=== PATIENT | female | born 1965 | race Caucasian/White ===

== ENCOUNTER → 2016-09-19 | Outpatient (CLI) | payer BC ==
--- NOTE | 2016-09-20 08:41 | USB ---
Reason for exam: follow-up at short interval from prior study. History: Benign US breast aspiration single LT of the left breast, April 09, 2016. Physical Findings: Nurse did not find any significant physical abnormalities on exam. US Breast LT Left breast ultrasound includes all four quadrants, the retroareolar region and axilla. Finding demonstrates a 4 x 3 x 3mm oval, cystic lesion at 12 o'clock. These results were verbally communicated with the patient and result sheet given to the patient on 09/19/16. ASSESSMENT: Benign, BI-RAD 2 RECOMMENDATION: Follow-up diagnostic mammogram of both breasts in 6 months.
== END | disposition home or self-care (01) ==
LOC: RADUSWWP 15:48
PROVIDERS: ATTEND Surgery
DX: N60.02 Solitary cyst of left breast (principal)

== ENCOUNTER → 2017-06-12 | Outpatient (CLI) | payer BC ==
[2017-06-11 17:41] VITALS: BMI 29.7
[2017-06-12 13:40] VITALS: BP 134/92; PULSE 114; RESP 18; TEMP 97.7
--- NOTE | 2017-06-12 14:32 | P.CONS ---
History of Present Illness - Reason for Consult Consult date: 06/12/17 - History of Present Illness This is a 51 years old female, she had deep laceration to the dorsum of the second finger of her right hand, the wound was initially glued, and 4 days later she had stitches, and she was treated with immobilizer for 3 weeks, when the cast was removed she had skin discoloration and she had severe pain in her right hand, and burning sensation which is increased mostly at night, she had physical therapy without any significant improvement, and she is currently on Neurontin 300 mg daily at bedtime, and she is on amitriptyline 25 mg daily at bedtime, she is not able to take any medication during the daytime because she is working and she has side effects from the medication when she take medication during the daytime, she denies any fever or night sweats , she continued to use her right upper extremity, she continues to work full-time Past Medical History Past Medical History: GERD/Reflux, Thyroid Disorder Additional Past Medical History / Comment(s): GRAVES, HAD IODINE [place]., occasional back pain, hiatal hernia., having pain right hand. History of Any Multi-Drug Resistant Organisms: None Reported Past Surgical History: Section, Cholecystectomy, Tubal Ligation, Uterine Ablation Additional Past Surgical History / Comment(s): C-S X3. Past Anesthesia/Blood Transfusion Reactions: Family History of Problems w/ Anesthesia Additional Past Anesthesia/Blood Transfusion Reaction / Comm: SISTER, PONV. Smoking Status: Former smoker - Past Family History Father Family Medical History: CVA/TIA Medications and Allergies Home Medications Medication Instructions Recorded Confirmed Type Levothyroxine Sodium [Synthroid] 88 mcg PO DAILY 10/27/14 06/11/17 History Multivitamins, Thera [Theragran] 1 each PO DAILY 10/27/14 06/11/17 History Ranitidine HCl [Zantac] 1 tab PO BID PRN 10/27/14 06/11/17 History Amitriptyline HCl [Elavil] 25 mg PO HS 06/11/17 06/12/17 History Ascorbic Acid [Vitamin C] 500 mg PO DAILY 06/11/17 06/12/17 History DULoxetine HCL [Cymbalta] 20 mg PO DAILY 06/11/17 06/12/17 History Gabapentin [Neurontin] 300 mg PO DAILY PRN 06/11/17 06/12/17 History Omeprazole [PriLOSEC] 20 mg PO DAILY 06/11/17 06/11/17 History Vitamin B Complex 1 each PO DAILY 06/11/17 06/11/17 History Allergies Allergy/AdvReac Type Severity Reaction Status Date / Time Cephalosporins Allergy Rash/Hives Verified 06/12/17 13:24 shellfish derived [Shellfish] Allergy Swelling Verified 06/12/17 13:24 THROAT, SORENESS Sulfa (Sulfonamide Allergy Rash/Hives Verified 06/12/17 13:24 Antibiotics) sulfamethoxazole Allergy Rash/Hives Verified 06/12/17 13:24 [From ] trimethoprim [From ] Allergy Rash/Hives Verified 06/12/17 13:24 Physical Exam Vitals: Vital Signs Temp Pulse Resp BP Pulse Ox 06/12/17 13:26 97.7 F 114 H 18 134/92 98 Intake and Output 06/11/17 06/12/17 06/12/17 22:59 06:59 14:59 Other: Weight 74.843 kg Social history : not smoker , NO ETOH , NO Illegal drugs Review of Systems : 1- Constitutional : no chills , no fever , no night sweats , 2- Ears : no ear discharge , no change in hearing 3-Nose, Mouth ,Throat ; no bleeding gums, no sore throat , no epistaxis , 4-Cardiovascular : Denies chest pain, , no orthopnea , no palpitation 5-Respiratory : Denies cough , no dyspnea , no hemoptysis 6-Gastrointestinal :, no change in bowel habits , no coffee- ground emesis . 7-Genitourinary : No hematuria , no discharge , no incontinence, 8-Musculoskeletal : No gait dysfunction , report low back pain , 9- Neurological : no ataxia , no tremor , no sezure , 10-Psychatric , no suicidal ideation no hallucination 11- Endocrine : no cold intolerence , no polyuria , no polydypsia , 12-Hematologic : no easy bleeding , no easy brusing , 13-Allergic / immunology : no angioedema , no wheezing ,no allergic rhinitis 14-Integumentary : no brttle nails , no change hair / nails , no foot/leg ulcers . Physical Examinations : 1-Constitutional : Cooperative , not in acute distress . 2-HEENT : nech ; supple , no Lymphadenopathy , no Thyromegaly , :eyes , no icterus, no photophobia . ENT : , normal oropharynx , no Thrush 3- Respiratory : Chest clear to auscultations Bilaterally , no wheezing . 4- Cardiovascular : regular rate and rhythem , S1 , S2 , no S3 , no S4. 5- Gastrointestinal: abdomen soft no tenderness , no organomegally . 6- Genitourinary : Defferred . 7-Integumentary : No cellulitis , no ulcers , normal skin turgor , no cyanotic . 8- neurologic : Cranial nerve II to XII intact , no focal neurological deffecit 9-psychatric : alert , oriented X 3 , appropriate affect , intact judgment and insight . 10-Lymphatic : no Lymphadenopathy. 11- musculoskeltal: normal gait Cervical Spine motor stregnth in the deltoid and biceps, normal right side , normal Left side motor stregnth biceps and the wrist extensors normal right side ,normal left side . motor stregnth in the triceps muscle . normal Right side , normal Left side deep tendon reflexes normal at the biceps , normal at Brachioradialis , normal at triceps. There is scar and in the dorsum of the right hand , the scar healed appropriately, no sign of infection, no discharge no erythema Dysesthesia at the dorsum of the right index finger Lumber spine moter stegnth lower extremities ,thigh and legs 5/5 Right side , 5/5 Left side es Results Comments: EMG and nerve conduction study= there is electrodiagnostic evidence of median mononeuropathy with the motors severity focal swelling at the right wrist with acute motor denervation Assessment and Plan Plan: Assessment and plan= complex regional pain syndrome type I on the right upper extremity, Patient could benefit from stellate ganglion block, procedure risk and benefits and alternatives discussed with the patient she agreed with proceeding, patient could benefit from changing the dose of Neurontin to 100 mg every morning and 200 mg daily at bedtime because she reported that she is having side effects from the Neurontin 100 mg daily at bedtime Time with Patient: Greater than 30
== END | disposition home or self-care (01) ==
LOC: PNWHC3 13:17
PROVIDERS: ATTEND Specialist
DX: G90.511 Complex regional pain syndrome I of right upper limb (principal); S61.210D Laceration without foreign body of right index finger without damage to nail, subsequent encounter; K21.9 Gastro-esophageal reflux disease without esophagitis; E07.9 Disorder of thyroid, unspecified; K44.9 Diaphragmatic hernia without obstruction or gangrene; Z90.49 Acquired absence of other specified parts of digestive tract; Z98.890 Other specified postprocedural states; Z79.899 Other long term (current) drug therapy; Z88.2 Allergy status to sulfonamides; Z88.1 Allergy status to other antibiotic agents; Z91.013 Allergy to seafood
CPT/HCPCS: 99211

== ENCOUNTER 2017-06-24 08:54 | Day surgery (SDC) | payer BC ==
[2017-06-20 10:28] VITALS: BMI 29.7
[2017-06-24 09:19] VITALS: TEMP 98.3
[2017-06-24] MEDS ORDERED: LIDOCAINE 1% 20 ML VIAL (10MG/ML) FOR IV START INTRADERMA ONE (09:24)
[2017-06-24] MEDS ORDERED: LACTATED RINGERS 1,000 ML IV ONE (09:24)
--- NOTE | 2017-06-24 10:11 | P.PCN ---
Date of Procedure: 06/24/17 Surgeon: Hiram Anglin Pathology: none sent Condition: stable Disposition: PACU Description of Procedure: Description of Procedure: PROCEDURES: Right Stellate ganglion block with ultrasound guidance. PREOPERATIVE DIAGNOSIS: 1- RUE CRPS (type I) POSTOPERATIVE DIAGNOSIS: Same ANESTHESIA: 1% lidocaine plain; conscious sedation with Versed/fentanyl EBL: None. COMPLICATIONS: None. INDICATION: The patient presents long history of signs and symptoms suggestive of CRPS of the right arm, presents today for right stellate ganglion block, #1 in this series. No use of blood thinners. PROCEDURE DESCRIPTION: The patient was seen and identified in the preoperative area. Risks, benefits, complications, and alternatives were discussed with the patient, with risks including but not limited to hoarseness, local anesthetic toxicity, bleeding, infection, nerve damage, allergic reactions to medications, and incomplete pain relief. The patient agreed to proceed with the procedure and signed the informed consent after all questions were answered. IV was started and vital signs were stable. Patient was brought to the procedure room and placed in the supine position with a shoulder roll to improve extension of the neck. Cervical area anteriorly was prepped and draped in the usual sterile fashion with focus on the right side of the neck. Using a linear ultrasound probe and sterile cover, the thyroid gland and carotid artery were identified, as was the vertebral artery. The ultrasound was moved cephalad until the vertebral artery was seen traveling medially. Depth was changed to identify the Chass[place]ac's tubercle medial and deep to the carotid artery, signifying the C6 level. After in-plane localization with 3 ml of 1% lidocaine plain, a 22-gauge 2-inch Stimuplex needle was directed between the thyroid and carotid artery and directed onto the Ch[place]ac's tubercle and slightly withdrawn. After negative aspiration for CSF or blood and in the absence of paresthesias, solution was injected incrementally with frequent aspiration into the longus colli muscle. Block solution contained 9 mL of 0.5% Bupivacaine preservative free and Kenalog 40mg. Needle was removed intact, skin was cleansed, and bandages were applied. COMPLICATIONS: None. The patient tolerated the procedure well without complications and had >80% pain relief immediately after the procedure, along with warmth in her right upper extremity and ptosis in the right eye. After re-examination, he was discharged home after the procedure after he met all discharge criteria. She was instructed not to eat before 4 hours postprocedure. She will follow up for a second SGB in approximately 2-3 weeks.
[2017-06-24] MEDS ORDERED: IV FLUID CONTINUATION 200 ML IV ONE (10:17)
[2017-06-24 11:13] VITALS: RESP 18
[2017-06-24 11:50] VITALS: BP 127/83; PULSE 68
== END 2017-06-24 13:00 | disposition home or self-care (01) ==
LOC: ORPAIN 08:54
PROVIDERS: ATTEND Anesthesiology
DX: G90.511 Complex regional pain syndrome I of right upper limb (principal); K21.9 Gastro-esophageal reflux disease without esophagitis; E05.00 Thyrotoxicosis with diffuse goiter without thyrotoxic crisis or storm; K44.9 Diaphragmatic hernia without obstruction or gangrene; Z87.891 Personal history of nicotine dependence; Z79.899 Other long term (current) drug therapy; Z88.2 Allergy status to sulfonamides; Z88.1 Allergy status to other antibiotic agents; Z91.013 Allergy to seafood
CPT/HCPCS: 64510; J2250; J3301; J3010; 99152

== ENCOUNTER 2017-07-09 08:52 | Day surgery (SDC) | payer BC ==
[2017-07-04 15:28] VITALS: BMI 29.7
[~2017-07-09 08:52] MED LIST: LACTATED RINGERS 1,000 ML IV SCH
[2017-07-09 09:52] VITALS: TEMP 98.1
[2017-07-09] MEDS ORDERED: ceFAZolin 2,000 MG in DEXTROSE/WATER 1 50ML.BAG IVPB STA (09:56)
[2017-07-09] MEDS ORDERED: LIDOCAINE 1% 20 ML VIAL (10MG/ML) FOR IV START INTRADERMA ONE (10:01)
[2017-07-09 10:05] LABS: Glucose,Whole Blood 92 mg/dL (75-99)
--- NOTE | 2017-07-09 11:06 | P.PCN ---
Date of Procedure: 07/09/17 Procedure(s) Performed: PROCEDURES: Right Stellate ganglion block under fluoroscopy guidance PREOPERATIVE DIAGNOSIS: 1- CRPS type I right upper extremity POSTOPERATIVE DIAGNOSIS: Same ANESTHESIA: Moderate sedation with intravenous Versed 2 mg and Fentanyl 50 Mcg EBL: None. COMPLICATIONS: None. INDICATION: The patient presents with symptoms suggestive of CRPS of the right arm here for diagnostic block PROCEDURE DESCRIPTION: The patient was seen and identified in the preoperative area. Risks, benefits, complications, and alternatives were discussed with the patient. The patient agreed to pursue with the procedure and signed the consent. IV was started and vital signs were stable. Critical pause was taken. Cervical area anteriorly was prepped and draped in the usual sterile fashion. The cricothyroid membrane was identified and the carotid artery was palpated and swept laterally to identify the [place]ac's tubercle medial to the carotid artery. Fluoroscopy was used to identify the Chass[place]ac's tubercle at the anterior body of the C6 vertebra. A 22-gauge 3-1/2- inch needle was pierced the skin and directed onto the Chassaignac's tubercle. The final position of the needle was verified by fluoroscopy. After negative aspiration of CSF and blood, solution was injected incrementally with frequent aspiration. Block solution containing 9 mL of 0.5% Bupivacaine preservative free and Kenalog 40mg. The area was cleansed and bandages were applied. The patient tolerated the procedure well without complications and was discharged home after the procedure after he met discharge criteria. He was instructed not to eat before 4 hours postprocedure.
[2017-07-09] MEDS ORDERED: IV FLUID CONTINUATION 1,000 ML IV ONE ×2 (11:19)
[2017-07-09 11:50] VITALS: BP 126/77; PULSE 62; RESP 18
--- NOTE | 2017-07-09 11:56 | FL ---
Fluoroscopy HISTORY: Pain 2 seconds fluoroscopy time supplied to the referring clinician. 1 intraoperative C-arm image documen ts the procedure. See dictated report from anesthesia.
== END 2017-07-09 12:18 | disposition home or self-care (01) ==
LOC: ORPAIN 08:52
PROVIDERS: ATTEND Specialist
DX: G90.511 Complex regional pain syndrome I of right upper limb (principal); K21.9 Gastro-esophageal reflux disease without esophagitis; Z88.2 Allergy status to sulfonamides; Z88.1 Allergy status to other antibiotic agents; Z91.013 Allergy to seafood; Z98.51 Tubal ligation status
CPT/HCPCS: 64510; J2250; J3301; J3010

== ENCOUNTER → 2017-07-30 | Outpatient (CLI) | payer BC ==
[2017-07-30 13:20] VITALS: BP 138/84; PULSE 101; RESP 18; TEMP 97.8
--- NOTE | 2017-07-30 13:48 | P.PN ---
Progress Note - Text Progress Note Date: 07/30/17 Patient returns for followup for chronic RUE pain after laceration with glass in her right hand in December 2016. Patient has undergone two SGBs (second in June) with excellent relief of pain in her RUE and she is now able to participate well in physical therapy. Patient has noticed that she is getting "zings" of pain in her extremities when she is stressed/frustrated/upset. Patient continues on gabapentin/amitriptyline/duloxetine medications from other physicians for pain with relief. Patient denies adverse drug effects from medications. Today, pt denies new-onset weakness, bowel/bladder incontinence, or any other signs or symptoms of cauda equina syndrome. There are no signs of acute intoxication, and no indications of medication diversion or overuse. In addition to above, 13-point review of systems is also negative for chest pain , shortness of breath, changes in vision, changes in hearing, new onset weakness , abdominal pain, diarrhea, extreme fatigue, malaise, fever, skin changes, homicidal or suicidal ideation, or bowel or bladder incontinence. Vital Signs: Reviewed in EMR Gen: WDWN, AAOx3, NAD HEENT: NCAT, EOMI, hearing grossly normal Pulm: resp unlabored Abd: soft, NT, ND Neck: supple, trachea midline Upper extremity: +mild allodynia, mild hyperalgesia over RUE Imaging: Reviewed in EMR Assessment: 1. RUE CRPS 2. chronic pain syndrome Plan: 1. Explanation: Opioid and psychological risk scores were reviewed. Diagnoses , prognoses, and multiple treatment options including but not limited to physical therapy, interventional therapies, adjuvant medical therapies, narcotic medication therapies, and surgery were discussed with the patient and all questions were answered to the patient's satisfaction. 2. Opioid agreement: none prescribed 3. Counseling: The patient was counseled extensively on BODY MASS INDEX, EXERCISE. Specifically, the patient was instructed regarding the importance of weight control, and exercise in the context of both chronic pain and overall health. 4. Procedures: none for now, consider repeat SGB in the future 5. Consultations: None 6. Investigations: UDS not done, MAPS queried and appropriate 7. Medications: Neurontin 100 mg #90 with two refills 8. Disposition: f/u for re-eval in 4 weeks, consider SGB at that point if PT is not helpful PQRS measures: 1-Patient's medications are documented in the chart. 2-Tobacco use is negative 3-Patient has not had a pneumococcal vaccine. 4-Advanced care planning discussed, patient unable to give. 5-Opioid contract signed with the patient. 6-Pain positive, follow-up visit or procedure scheduled 7-Patient's blood pressure measured and documented, and patient will follow up with the primary care due to hypertension. 8-Patient's weight was measured, and body mass index ABOVE the normal limits, and counseling was done. Patient instructed to follow up with PCP. 9-Patient WAS NOT identified as an unhealthy alcohol user.
== END | disposition home or self-care (01) ==
LOC: PNWHC3 12:58
PROVIDERS: ATTEND Anesthesiology
DX: G89.4 Chronic pain syndrome (principal); G90.511 Complex regional pain syndrome I of right upper limb; M79.621 Pain in right upper arm; S61.411D Laceration without foreign body of right hand, subsequent encounter
CPT/HCPCS: 99211

== ENCOUNTER → 2017-09-04 | Outpatient (CLI) | payer BC ==
[2017-09-04 13:18] VITALS: BP 137/90; PULSE 64; RESP 16
--- NOTE | 2017-09-04 13:50 | P.PAINPG ---
Subjective Progress Note Date: 09/04/17 Principal diagnosis: Complex regional pain syndrome right hand This is a very pleasant 51-year-old woman with a history complication regional pain syndrome. This began in December 2016 after she cut her hand while washing a glass. She is undergone 2 previous stellate ganglion blocks and reports he's afforded her substantial relief of her symptoms. She is also taking gabapentin 100 mg every morning and 200 mg every night. She reports that this commendation is working quite well for her and she has had profound jain of her function. He is quite happy with her current situation. Objective - Vital Signs Vital signs: Vital Signs Temp Pulse 64 09/04/17 13:06 Resp 16 09/04/17 13:06 BP 137/90 09/04/17 13:06 Pulse Ox Intake & Output 09/03/17 09/04/17 09/04/17 18:59 06:59 18:59 Weight 74.843 kg - Exam Gen: WDWN, AAOx3, NAD HEENT: NCAT, EOMI, hearing grossly normal Pulm: resp unlabored The patient is not sedated. She is a question appropriate. She uses her right hand frequently during this evaluation demonstrates no obvious restriction to using it. She does have a well-healed scar on her right first knuckle from her previous cut. She demonstrates no obvious limitations or motor deficiencies. Assessment and Plan (1) Complex regional pain syndrome i of right upper limb Current Visit: Yes Status: Acute Code(s): G90.511 - COMPLEX REGIONAL PAIN SYNDROME I OF RIGHT UPPER LIMB SNOMED Code(s): 942799133 Plan: 1. Patient is doing quite well and does not require any further interventional procedures. 2. I strongly encouraged her to continue with her use of her right hand for all activities. She is previously been through extensive physical and occupational therapy. She will use techniques from these experiences to help her with her rehabilitation. 3. She will continue to take gabapentin 100 mg by mouth every morning and 200 mg by mouth daily at bedtime. She'll also take Cymbalta and amitriptyline. She is on stable doses of these medicines. I will release her back to her primary care physician so that he can write these medications for her. Should she require any titration of these medicines or reevaluation we will be more than happy to see her back in our clinic. 4. I have suggested her that in approximately 6 months she start weaning off of these medications. I have explained to her that she should do this systematically one medication at time. If She has any difficulty with this we will be happy to see her back in our clinic. PQRS Measure Charge Sheet Measure #130: Documentation of Current Meds in Medical Chart: Patient's medications documented in chart Measure #226: Tobacco Use: Screen & Cessation Intervention: Pt not a tobacco user Measure #111: Pneumonia Vaccination: Pneumococcal vaccine NOT administered or previously given Measure #47: Advance Care Plan: Advance care planning discussed & documented, pt chose/unable to give Measure #412: Opioid Treatment Agreement: No documentation of signed opioid treatment agreement Measure #408: Opioid Therapy Follow-up Evaluation: Patient had NO f/u eval minimum every 3 months during opioid therapy Measure #317: Preventitive Care & Scrn High Bld Press & F/U: Normal blood pressure, f/u not required Measure #128: Body Mass Index (BMI) Screening & Follow-up: BMI documented ABOVE normal parameters - f/u documented Measure #131: Pain Assessment & Follow-up: Pain positive & plan documented Measure #431: Unhealthy Alcohol Use Preventative Care & Scrn: Patient not identified as an unhealthy alcohol user PQRS Narrative: Smoking Status Former smoker Do You Want the Pneumonia No Vaccine AT THIS TIME? Blood Pressure 137/90 Pain Intensity [Right Hand] 0 Scale Used Numeric (1 - 10) Hx Alcohol Use (MH) No Home Medications: Ambulatory Orders Levothyroxine Sodium [Synthroid] 88 mcg PO DAILY 10/27/14 Multivitamins, Thera [Theragran] 1 each PO DAILY 10/27/14 Ranitidine HCl [Zantac] 1 tab PO BID PRN 10/27/14 Amitriptyline HCl [Elavil] 25 mg PO HS 06/11/17 Ascorbic Acid [Vitamin C] 500 mg PO DAILY 06/11/17 DULoxetine HCL [Cymbalta] 20 mg PO DAILY 06/11/17 Omeprazole [PriLOSEC] 20 mg PO DAILY 06/11/17 Vitamin B Complex 1 each PO DAILY 06/11/17 Gabapentin [Neurontin] 100 mg PO DAILY #30 cap 07/30/17 Gabapentin [Neurontin] 200 mg PO HS #60 cap 07/30/17 Controlled Substance Measures - Controlled Substance Measures Is patient prescribed a controlled substance at discharge?: No If prescribed controlled substance>3 days was MAPS reviewed?: No When asked, does pt state using other controlled substances?: No Vital Signs - Respirations Respiratory Rate: 16
== END | disposition home or self-care (01) ==
LOC: PNWHC3 12:14
PROVIDERS: ATTEND Pain Medicine Pain Medicine
DX: G90.511 Complex regional pain syndrome I of right upper limb (principal); W25.XXXD Contact with sharp glass, subsequent encounter; Z79.891 Long term (current) use of opiate analgesic; Z79.899 Other long term (current) drug therapy; Z87.891 Personal history of nicotine dependence
CPT/HCPCS: 99211

== ENCOUNTER → 2017-11-27 | Outpatient (CLI) | payer BC ==
--- NOTE | 2017-11-29 09:53 | MM ---
Reason for exam: additional evaluation requested from prior study. Last mammogram was performed 8 months ago. History: Patient is postmenopausal. Benign US breast aspiration single LT of the left breast, April 09, 2016. Taking other hormone for 2 months. Physical Findings: Nurse did not find any significant physical abnormalities on exam. MG 3D Diag Mammo W/Cad RT CC and MLO view(s) were taken of the right breast. Prior study comparison: April 04, 2017, bilateral MG 3d diag mammo w/cad [facility]OX[facility]. April 09, 2016, left breast MG diagnostic mammo LT wo CAD. The breast tissue is heterogeneously dense. This may lower the sensitivity of mammography. No new dominant lesion in the right breast. These results were verbally communicated with the patient and result sheet given to the patient on 11/27/17. ASSESSMENT: Benign, BI-RAD 2 RECOMMENDATION: Routine screening mammogram of both breasts in 4 months.
== END | disposition home or self-care (01) ==
LOC: RADMAMWWP 15:31
PROVIDERS: ATTEND Family Medicine
DX: R92.8 Other abnormal and inconclusive findings on diagnostic imaging of breast (principal)
CPT/HCPCS: 77061; 77065

== ENCOUNTER → 2018-01-16 | Outpatient (CLI) | payer BC ==
[2018-01-16 13:10] LABS: HGB 14.2 gm/dL (11.4-16.0); MCH 32.2 pg (25.0-35.0); MCV 97.4 fL (80.0-100.0); Mean Platelet Volume 7.8; Platelet Count 274 k/uL (150-450); RBC 4.42 m/uL (3.80-5.40); RDW 12.6 % (11.5-15.5); WBC 4.3 k/uL (3.8-10.6)
[2018-01-16 13:33] LABS: Potassium 4.3 mmol/L (3.5-5.1); Sodium 139 mmol/L (137-145)
[2018-01-16 13:34] LABS: ALT 29 U/L (9-52); AST 30 U/L (14-36); Albumin 4.6 g/dL (3.5-5.0); Alkaline Phosphatase 66 U/L (38-126); Anion Gap 8 mmol/L; Blood Urea Nitrogen 11 mg/dL (7-17); Calcium 9.9 mg/dL (8.4-10.2); Carbon Dioxide 26 mmol/L (22-30); Chloride 105 mmol/L (98-107); Glucose 97 mg/dL (74-99); Total Bilirubin 0.6 mg/dL (0.2-1.3); Total Protein 7.2 g/dL (6.3-8.2)
== END ==
LOC: LABWHC1 11:58
PROVIDERS: ATTEND Psychiatry & Neurology Neurology
DX: Z00.00 Encounter for general adult medical examination without abnormal findings (principal); Z79.899 Other long term (current) drug therapy
CPT/HCPCS: 36415; 80053; 85027

== ENCOUNTER → 2018-05-20 | Outpatient (CLI) | payer BC ==
--- NOTE | 2018-05-22 09:08 | MM ---
Reason for exam: screening (asymptomatic). Last mammogram was performed 6 months ago. History: Patient is postmenopausal. Benign US breast aspiration single LT of the left breast, April 09, 2016. Taking other hormone for 2 months. Physical Findings: A clinical breast exam by your physician is recommended on an annual basis and results should be correlated with mammographic findings. MG 3D Screening Mammo W/Cad Bilateral CC and MLO view(s) were taken. Prior study comparison: November 27, 2017, right breast MG 3d diag mammo w/cad RT. April 04, 2017, bilateral MG 3d diag mammo w/cad ROXANNE. The breast tissue is heterogeneously dense. This may lower the sensitivity of mammography. Previous mammotome biopsy in the left breast. There is chronic nodularity in the right breast. No significant changes when compared with prior studies. ASSESSMENT: Benign, BI-RAD 2 RECOMMENDATION: Routine screening mammogram of both breasts in 1 year.
== END | disposition home or self-care (01) ==
LOC: RADMAMWWP 16:11
PROVIDERS: ATTEND Family Medicine
DX: Z12.31 Encounter for screening mammogram for malignant neoplasm of breast (principal)
CPT/HCPCS: 77063; 77067

== ENCOUNTER → 2019-09-28 | Outpatient (CLI) | payer BC ==
--- NOTE | 2019-09-30 08:16 | MM ---
Reason for exam: screening (asymptomatic). Last mammogram was performed 1 year and 4 months ago. History: Patient is postmenopausal. Benign US breast aspiration single LT of the left breast, April 09, 2016. Taking other hormone for 2 months. Physical Findings: A clinical breast exam by your physician is recommended on an annual basis and results should be correlated with mammographic findings. MG 3D Screening Mammo W/Cad Bilateral CC and MLO view(s) were taken. Prior study comparison: May 20, 2018, bilateral MG 3d screening mammo w/cad. November 27, 2017, right breast MG 3d diag mammo w/cad RT. The breast tissue is heterogeneously dense. This may lower the sensitivity of mammography. Previous mammotome biopsy in the left breast. There is chronic nodularity in the right breast. No significant changes when compared with prior studies. ASSESSMENT: Benign, BI-RAD 2 RECOMMENDATION: Routine screening mammogram of both breasts in 1 year.
== END | disposition home or self-care (01) ==
LOC: RADMAMWWP 16:14
PROVIDERS: ATTEND Family Medicine
DX: Z12.31 Encounter for screening mammogram for malignant neoplasm of breast (principal)
CPT/HCPCS: 77063; 77067

== ENCOUNTER → 2020-06-16 | Outpatient (CLI) | payer BC ==
--- NOTE | 2020-06-16 12:34 | P.STRESS ---
- Stress Test Note Stress Test Results/Findings: Exam Performed: stress test Exam Date: 06/16/20 Reason for Exam: Vertigo and Fitgue Height: 5 ft 3 in Weight: 72.575 kg Protocol: Tja Stage: 4 Duration of Exercise: 10:08 Resting Heart Rate: 73 Resting Blood Pressure: 126/91 Maximum Achieved Heart Rate: 169 Maximum Achieved Blood Pressure: 173/115 85% PMHR: 141 100% PMHR: 166 METS: 11.7 Technologist Comment: Stress Test Results/Findings: This is a 54-year-old female with history of palpitations, shortness of breath. Smoking history and family history being evaluated of cardiac status. Stress data: Baseline EKG showed sinus rhythm with normal NC and QRS duration. Blood pressure at rest is 126/91 with pulse rate of 73. Patient walked on the Taj protocol for about 10 minutes achieving a maximal 10-169 with a blood pressure of 173/115. EKGs taken during and after exercise did not reveal any significant changes from the baseline. Patient did not experience any chest pain. Final impression #1. Negative stress test #2 patient did not experience any chest pain #3. No arrhythmias are detected #4. Excellent exercise capacity
--- NOTE | 2020-06-16 18:00 | ECHOF ---
Referral Reason:Z73.89 MEASUREMENTS -------- HEIGHT: 160.0 cm WEIGHT: 72.6 kg BP: RVIDd: 3.3 cm (< 3.3) IVSd: 1.5 cm (0.6 - 1.1) LVIDd: 3.5 cm (3.9 - 5.3) LVPWd: 1.4 cm (0.6 - 1.1) IVSs: 1.9 cm LVIDs: 1.8 cm LVPWs: 1.7 cm LAESV Index (A-L): 21.25 ml/m Ao Diam: 3.0 cm (2.0 - 3.7) AV Cusp: 2.0 cm (1.5 - 2.6) LA Diam: 3.8 cm (2.7 - 3.8) MV EXCURSION: 15.640 mm (> 18.000) MV EF SLOPE: 78 mm/s (70 - 150) EPSS: 0.3 cm MV E Tunde: 0.60 m/s MV DecT: 235 ms MV A Tunde: 0.58 m/s MV E/A Ratio: 1.02 RAP: 5.00 mmHg RVSP: 21.93 mmHg FINDINGS -------- Sinus rhythm. This was a technically adequate study. The left ventricular size is normal. There is moderate concentric left ventricular hypertrophy. O verall left ventricular systolic function is normal with, an EF between 55 - 60 %. The diastolic fi lling pattern is normal for the age of the patient 12.53. The right ventricle is mildly enlarged. Normal LA size by volume 22+/-6 ml/m2. The right atrial size is normal. Interatrial and interventricular septum intact. There is no evidence of aortic regurgitation. There is no evidence of aortic stenosis. There is trace to mild mitral regurgitation. Mild tricuspid regurgitation present. There is no evidence of pulmonary hypertension. The right v entricular systolic pressure, as measured by Doppler, is 21.93mmHg. There is no pulmonic regurgitation present. The aortic root size is normal. The inferior vena cava is mildly dilated. There is no pericardial effusion. CONCLUSIONS -------- 1. The left ventricular size is normal. 2. There is moderate concentric left ventricular hypertrophy. 3. Overall left ventricular systolic function is normal with, an EF between 55 - 60 %. 4. The diastolic filling pattern is normal for the age of the patient 12.53 5. The right ventricle is mildly enlarged. 6. There is trace to mild mitral regurgitation. 7. Mild tricuspid regurgitation present. 8. The inferior vena cava is mildly dilated. MAGISTRATE ASSISTANT: Nicole Butler RDCS
== END | disposition home or self-care (01) ==
LOC: RADECHMAIN 08:23
PROVIDERS: ATTEND Family Medicine
DX: I07.1 Rheumatic tricuspid insufficiency (principal); I34.0 Nonrheumatic mitral (valve) insufficiency; Z73.89 Other problems related to life management difficulty
CPT/HCPCS: 93017; 93306

== ENCOUNTER → 2020-11-08 | Outpatient (CLI) | payer BC ==
--- NOTE | 2020-11-08 19:58 | CONS ---
CONSULTATION A 55-year-old lady has been evaluated in [facility] for possibility of obstructive sleep apnea. HISTORY OF PRESENT ILLNESS/SLEEP WAKE EVALUATION: Patient's usual sleep schedule from 11 p.m. to 6 a.m. on weekdays and from midnight until 9:30/10:00 am on weekends. She does have problems with falling asleep, although no TV in bedroom. She snores and she wakes up from sleep 2 times with up to 2 episodes of nocturia. No witnessed episodes of stopped breathing during sleep. Previously, patient feels that she has bradycardia and was evaluated in Cardiology office. In the morning, patient wakes up tired. During the day, she feels fatigued after exercise. [place] Sleepiness Scale is 9. She usually does not take naps, but she drinks 3 coffees in the morning. PAST MEDICAL HISTORY: Positive for hypothyroidism, acid reflux. PAST SURGICAL HISTORY: Cholecystectomy, uterus ablation, . MEDICATIONS: Synthroid 100 mcg once a day. Pepcid 40 mg twice a day. Vitamin C, B12, melatonin at night. SOCIAL HISTORY: Negative for using alcohol or smoking. FAMILY HISTORY: Hypertension, hyperlipidemia, stroke, thyroid problems. REVIEW OF SYSTEMS: Awakenings from sleep, feeling tiredness, and sometimes sleepiness during the day. PHYSICAL EXAMINATION: GENERAL: lady without distress BP 112/74, HR 70, RR 15. Height 5.3, weight 164, body mass index 29, temperature 98.2, oxygen saturation at room air 99%. HEENT: Oropharynx moderately low position of soft palate. Mallampati II-III. Big uvula. Neck is 15 inches in circumference. NECK: Supple, no JVD. Thyroid is not palpable. LUNGS: Clear to percussion and to auscultation. Good air exchange. No wheezing or rhonchi. HEART: S1, S2 regular. No murmurs, gallops, or rubs. ABDOMEN: Slightly obese. Soft and nontender. Bowel sounds are present. No organomegaly appreciated. EXTREMITIES: No clubbing or cyanosis. INTERMISSION COORDINATOR: Awake, alert, and oriented X3. Cranial nerves 2 to 7 intact. There is no fasciculation or atrophy. noted. No focal deficits observed. IMPRESSION: 1. Snoring, awakenings from sleep with nocturia. Big uvula. Possible obstructive sleep apnea-hypopnea syndrome. 2. Overweight, close to obesity, body mass index 29. 3. Hypothyroidism. 4. Acid reflux. 5. Status post cholecystectomy. 6. Status post uterus ablation. 7. Status post C-sections x3. PLAN: 1. Polysomnography for evaluation of patient's breathing during sleep. 2. CPAP/BiPAP titration if sleep study confirms obstructive sleep apnea-hypopnea syndrome. 3. Preferable position during sleep on the side. 4. No driving if patient feels any sleepiness. 5. I will see patient for follow up visit to explain results of testing and following plan. Thank you very much for referring this patient for consultation. Sincerely, Shamir Osorio MD, PhD, FAASM Diplomat of [place] [employer] Sleep Medicine Board of [place] [employer] Supervisor [employer] [facility] [place] MMODL / BLU: [id number] /
== END ==
LOC: SLEEP 16:16
PROVIDERS: ATTEND Internal Medicine
DX: R06.83 Snoring (principal); R35.1 Nocturia; E66.3 Overweight; E03.9 Hypothyroidism, unspecified; K21.9 Gastro-esophageal reflux disease without esophagitis; Z68.29 Body mass index [BMI] 29.0-29.9, adult; Z90.49 Acquired absence of other specified parts of digestive tract; Z98.890 Other specified postprocedural states; Z79.899 Other long term (current) drug therapy; Z88.1 Allergy status to other antibiotic agents; Z88.2 Allergy status to sulfonamides; Z91.013 Allergy to seafood; Z87.891 Personal history of nicotine dependence
CPT/HCPCS: 99211

== ENCOUNTER → 2021-01-02 | Outpatient (CLI) | payer BC ==
--- NOTE | 2021-01-04 14:01 | MM ---
Reason for exam: screening (asymptomatic). Last mammogram was performed 1 year and 3 months ago. History: Patient is postmenopausal. Benign US breast aspiration single LT of the left breast, April 09, 2016. Taking other hormone for 2 months. Physical Findings: A clinical breast exam by your physician is recommended on an annual basis and results should be correlated with mammographic findings. MG 3D Screening Mammo W/Cad Bilateral CC and MLO view(s) were taken. Prior study comparison: September 28, 2019, bilateral MG 3d screening mammo w/cad. May 20, 2018, bilateral MG 3d screening mammo w/cad. The breast tissue is heterogeneously dense. This may lower the sensitivity of mammography. Previous mammotome biopsy in the left breast. There is chronic nodularity in the right breast. No significant changes when compared with prior studies. ASSESSMENT: Benign, BI-RAD 2 RECOMMENDATION: Routine screening mammogram of both breasts in 1 year.
== END | disposition home or self-care (01) ==
LOC: RADMAMWWP 15:03
PROVIDERS: ATTEND Family Medicine
DX: Z12.31 Encounter for screening mammogram for malignant neoplasm of breast (principal); Z78.0 Asymptomatic menopausal state
CPT/HCPCS: 77063; 77067

== ENCOUNTER → 2022-01-03 | Outpatient (CLI) | payer BC ==
--- NOTE | 2022-01-03 14:45 | BD ---
EXAMINATION TYPE: Axial Bone Density DATE OF EXAM: 01/03/2022 COMPARISON: NONE CLINICAL HISTORY: 56 year old Female. ICD-10 CODE: N95.1 MENOPAUSAL Height: 62.5 Weight: 146.0 FRAX RISK QUESTIONS: Alcohol (3 or more units per day): no Family History (Parent hip fracture): no Glucocorticoids (More than 3mos): no (Ex: prednisone, prednisolone, methylprednisolone, dexamethasone, and hydrocortisone). History of Fracture in Adulthood: no Secondary Osteoporosis: 1. Type 1 Diabetes: no 2. Hyperthyroidism: no 3. Menopause before 45: no 4. Malnutrition: no 5. Chronic liver disease: no Rheumatoid Arthritis: no Current Tobacco Use: no RISK FACTORS HISTORY OF: Surgery to Spine/Hip(right/left)/Wrist (right/left): no Family History of Osteoporosis: no Active: yes Diet low in dairy products/other sources of calcium: no Postmenopausal woman: yes Lost more than 2 inches in height since high school: no MEDICATIONS: Thyroid Medications: synthroid How Lon years Additional History: EXAM MEASUREMENTS: Bone mineral densitometry was performed using the [employer] System. Bone mineral density as measured about the Lumbar spine is: ----- L1-L4(G/cm2): 1.005 T Score Values are as follows: ----- L1: -1.1 ----- L2: -1.9 ----- L3: -1.6 ----- L4: -1.3 ----- L1-L4: -1.5 Bone mineral density : baseline Bone mineral density about the R hip (g/cm2): 1.020 Bone mineral density about the L hip (g/cm2): 0.893 T Score values are as follows: -----R Neck: -0.1 -----L Neck: -1.0 -----R Total: -0.6 -----L Total: -0.5 Bone mineral density : baseline FRAX%s: The graph provided illustrates a 6.2% chance for a major osteoporotic fx and a 0.3% chance fo r the hips probability for fx in 10 years time. IMPRESSION: Osteopenia (T Score between -2.5 and -1). There is slightly increased risk of fracture and the patient may be considered for treatment. Re-Screen 2-5 years. NOTE: T-SCORE=SD OF THE YOUNG ADULT MEAN.
--- NOTE | 2022-01-04 19:20 | MM ---
Reason for Exam: Screening (asymptomatic). Last screening mammogram was performed 12 month(s) ago. Patient History: Menarche at age 11. First Full-Term at age 25. Postmenopausal. Patient has history of breast feeding. 04/09/2016, Benign Cyst Aspiration on the left side. Risk Values: Vero 5 year model risk: 1.5%. NCI Lifetime model risk: 9.7%. Prior Study Comparison: 05/20/2018 Bilateral Screening Mammogram, [facility]. 09/28/2019 Bilateral Screening Mammogram, [facility]. 01/02/2021 Bilateral Screening Mammogram, [facility]. Tissue Density: The breast tissue is heterogeneously dense. This may lower the sensitivity of mammography. Findings: Analyzed By CAD. Asymmetry in the right breast lateral aspect posterior depth on CC view only. There is no suspicious group of microcalcifications or new suspicious mass in either breast.Asymmetry in the right breast lateral aspect middle depth on CC view only. There is a biopsy clip in the left breast. Overall Assessment: Incomplete: need additional imaging evaluation, BI-RAD 0 Management: Diagnostic Mammogram of the right breast. A clinical breast exam by your physician is recommended on an annual basis and results should be correlated with mammographic findings. [facility] will attempt to contact patient to return for supplemental views and ultrasound if indicated. Electronically signed and approved by: Isaac Cain DO
== END | disposition home or self-care (01) ==
LOC: RADMAMWWP 13:46
PROVIDERS: ATTEND Obstetrics & Gynecology
DX: Z12.31 Encounter for screening mammogram for malignant neoplasm of breast (principal); M85.852 Other specified disorders of bone density and structure, left thigh; M85.88 Other specified disorders of bone density and structure, other site; Z78.0 Asymptomatic menopausal state; Z98.890 Other specified postprocedural states
CPT/HCPCS: 77063; 77067; 77080

== ENCOUNTER → 2022-01-10 | Outpatient (CLI) | payer BC ==
--- NOTE | 2022-01-10 14:10 | MM ---
Reason for Exam: Additional evaluation requested from abnormal screening. Last screening mammogram was performed less than 1 month ago. Patient History: Menarche at age 11. First Full-Term at age 25. Postmenopausal. Patient has history of breast feeding. 04/09/2016, Benign Cyst Aspiration on the left side. Risk Values: Vero 5 year model risk: 1.5%. NCI Lifetime model risk: 9.7%. Tissue Density: Right: There are scattered fibroglandular densities. Findings: Analyzed By CAD. On spot compression, overall configuration of upper outer quadrant right breast tissue is unchanged. Nodularity corresponding to intramammary lymph nodes also unchanged. No significant change from prior exams. Overall Assessment: Benign, BI-RAD 2 Management: Screening Mammogram of both breasts in 1 year. 1. Patient should continue monthly self breast exams. 2. A clinical breast exam by your physician is recommended on an annual basis. 3. This exam should not preclude additional follow-up of suspicious palpable abnormalities. Electronically signed and approved by: Jana Gonzalez M.D. Radiologist
== END | disposition home or self-care (01) ==
LOC: RADMAMWWP 13:21
PROVIDERS: ATTEND Obstetrics & Gynecology
DX: R92.8 Other abnormal and inconclusive findings on diagnostic imaging of breast (principal); Z78.0 Asymptomatic menopausal state; Z98.890 Other specified postprocedural states
CPT/HCPCS: 77061; 77065

== ENCOUNTER → 2022-03-08 | Outpatient (CLI) | payer BC ==
--- NOTE | 2022-03-08 14:36 | P.GSHP ---
History of Present Illness H&P Date: 03/08/22 Guerline is a 56 white female seen in consultation for Dr. Mauro Woodard regarding a recent mammogram. She had a bilateral mammogram done on 09-02-21 which led to a daignostic right breast mammogram on 01-10-22. These were felt to be BIRAD 2. The patient does not feel any new lumps masses or nodules in her breast. She had a right breast needle biopsy in the past, this was negative for cancer. She is not complaining of any nipple discharge. She is not complaining of any symptoms, or infection in the breast. Nicotine: 1 PPD/stopped 15 years ago caffiene: 2 to 4 cups/day chocolate: daily BCP: 10 years; stopped about 20 years ago Family History: none of cancer Hormonal History: menarche: 04/22 breast fed: yes, age at first : 25 menopause: ablation at 47 hormones: none Surgical History: gallbladder 3 C-Sections [place] plasty Uterine ablation Medical History: Graves disease treated with radioactive iodine she now has hypothyroidism GERD She'll history: Nicotine: One pack per day stopped 15 years ago Alcohol: social weekly drugs: none - Constitutional Comment: hotflashes Constitutional: Denies chills, Denies fever - EENT Eyes: denies blurred vision, denies pain Ears: bilateral: tinnitus, deny: decreased hearing Ears, nose, mouth and throat: Denies headache, Denies sore throat - Breasts Breasts: bilateral: as per HPI - Cardiovascular Cardiovascular: Denies chest pain, Denies shortness of breath - Respiratory Respiratory: Denies cough, Denies 7 - Gastrointestinal Gastrointestinal: Reports as per HPI - Genitourinary (Female) Genitourinary: Denies dysuria, Denies hematuria - Musculoskeletal Musculoskeletal: Denies myalgias - Integumentary Integumentary: Denies pruritus, Denies rash - Neurological Neurological: Denies numbness, Denies weakness - Psychiatric Psychiatric: Denies anxiety, Denies depression - Endocrine Endocrine: Reports as per HPI - Hematologic/Lymphatic Comment: none - Allergic/Immunologic Allergic/Immunologic: Reports as per HPI, Reports seasonal allergies Past Medical History Past Medical History: GERD/Reflux, Thyroid Disorder Additional Past Medical History / Comment(s): GRAVES,-HAD IODINE [place]., occasional back pain, hiatal hernia., History of Any Multi-Drug Resistant Organisms: None Reported Past Surgical History: Section, Cholecystectomy, Tubal Ligation, Uterine Ablation Additional Past Surgical History / Comment(s): C-S X3., PAIN CLINIC PROCEDURES, COLONOSCOPY Past Anesthesia/Blood Transfusion Reactions: Family History of Problems w/ Anesthesia Additional Past Anesthesia/Blood Transfusion Reaction / Comment(s): SISTER, PONV. Past Psychological History: No Psychological Hx Reported Past Alcohol Use History: Occasional Additional Past Alcohol Use History / Comment(s): QUIT SMOKING APPROX 20 YEARS AGO. STARTED SMOKING AGE 20 AND SMOKED OFF AND ON. Past Drug Use History: None Reported - Past Family History Father Family Medical History: CVA/TIA Medications and Allergies Home Medications Medication Instructions Recorded Confirmed Type Levothyroxine Sodium [Synthroid] 88 mcg PO DAILY 10/27/14 01/26/19 History Calcium Carbonate [Calcium] 600 mg PO DAILY 01/26/19 01/26/19 History Famotidine [Pepcid AC] 10 mg PO BID 01/26/19 01/26/19 History Allergies Allergy/AdvReac Type Severity Reaction Status Date / Time Cephalosporins Allergy Rash/Hives Verified 01/26/19 09:28 shellfish derived [Shellfish] Allergy Swelling Verified 01/26/19 09:28 THROAT, SORENESS Sulfa (Sulfonamide Allergy Rash/Hives Verified 01/26/19 09:28 Antibiotics) sulfamethoxazole Allergy Rash/Hives Verified 01/26/19 09:28 [From Septra] trimethoprim [From Decra] Allergy Rash/Hives Verified 01/26/19 09:28 Surgical - Exam - General no distress - Eyes normal ocular movement - ENT no hearing loss - Neck trachea midline - Respiratory normal respiratory effort, clear to auscultation - Cardiovascular Rhythm: regular Heart Sounds: normal: S1, S2 - Integumentary normal turgor Breast Exam: BRA: 38D inspection: Right breast slightly larger than the left breast, bilateral grade 2/3 ptosis Palpation: Right breast: Multiple positional exam fibrocystic changes no dominant masses or nodules of concern Right axilla: No adenopathy of concern Left breast: Multi-positional exam fibrocystic changes no dominant masses or nodules of concern Left axilla: No adenopathy of concern - Neurologic no disoriented, no combative - Musculoskeletal normal gait, normal posture - Psychiatric oriented to time, oriented to person, oriented to place, speech is normal, memory intact Results mammogram reviewed Assessment and Plan Assessment: Impression: Fibrocystic breast changes Recent bilateral mammogram resulted in a diagnostic right breast mammogram which ended up being benign BIRADS 2 on Plan: Bilateral mammogram 1 year with physician exam at that time If patient is concerned she will have a physician exam in 6 months Cc: Dr. Mauro Woodard
== END | disposition home or self-care (01) ==
LOC: WWCWWP 13:02
PROVIDERS: ATTEND Surgery
DX: Z53.9 Procedure and treatment not carried out, unspecified reason (principal)

== ENCOUNTER → 2023-02-21 | Outpatient (CLI) | payer BC ==
--- NOTE | 2023-02-24 08:10 | MM ---
Reason for Exam: Screening (asymptomatic). Last mammogram was performed 1 year(s) and 2 month(s) ago. Patient History: Menarche at age 11. First Full-Term at age 25. Postmenopausal. Patient has history of breast feeding. 04/09/2016, Benign Cyst Aspiration on the left side. Risk Values: Vero 5 year model risk: 1.6%. NCI Lifetime model risk: 9.5%. Prior Study Comparison: 01/02/2021 Bilateral Screening Mammogram, [facility]. 01/03/2022 Bilateral MG 3D screening mammo w/cad, [facility]. 01/10/2022 Right MG 3D work up w/cad RT, [facility]. Tissue Density: The breast tissue is heterogeneously dense. This may lower the sensitivity of mammography. Findings: Analyzed By CAD. Left breast biopsy clip. There is no suspicious group of microcalcifications or new suspicious mass. Overall Assessment: Negative, BI-RAD 1 Management: Screening Mammogram of both breasts in [address] [facility] will attempt to contact patient to return for supplemental views and ultrasound if indicated. Patient should continue monthly self-breast exams. A clinical breast exam by your physician is recommended on an annual basis. This exam should not preclude additional follow-up of suspicious palpable abnormalities. Note on Vero scores and lifetime risk: 1. A Vero score greater than 3% is considered moderate risk. If this is the case, consider specialist referral to assess eligibility for a risk reducing agent. 2. If overall lifetime risk for the development of breast cancer is 20% or higher, the patient may qualify for future screening with alternating mammogram and breast MRI. Electronically signed and approved by: Isaac Cain DO
== END | disposition home or self-care (01) ==
LOC: RADMAMWWP 15:22
PROVIDERS: ATTEND Family Medicine
DX: Z12.31 Encounter for screening mammogram for malignant neoplasm of breast (principal); Z78.0 Asymptomatic menopausal state
CPT/HCPCS: 77063; 77067

== ENCOUNTER → 2023-09-20 | Outpatient (CLI) | payer BC ==
[2023-09-22 15:53] LABS: Gliadin AB IgA, Deaminated Negative (Negative); Gliadin AB IgA, Unit 0.9 U/mL; Gliadin AB IgG, Deaminated Negative (Negative); Gliadin AB IgG, Unit <0.4 U/mL
== END | disposition home or self-care (01) ==
LOC: LABWHC1 11:34
PROVIDERS: ATTEND Internal Medicine Gastroenterology
DX: R76.8 Other specified abnormal immunological findings in serum (principal)
CPT/HCPCS: 36415; 83516

== ENCOUNTER → 2023-12-23 | Outpatient (CLI) | payer BC ==
--- NOTE | 2023-12-23 21:14 | MR ---
EXAMINATION TYPE: MR lumbar spine wo con DATE OF EXAM: 12/23/2023 6:31 PM CLINICAL INDICATION: Female, 58 years old with history of M47.816, M54.50, M79.662; PHH, Lower back p ain, BLE radiculopathy, difficulty walking. COMPARISON: None TECHNIQUE: Multi planar, multi sequence imaging was performed utilizing: T1-weighted, T2-weighted, a nd turbo inversion recovery imaging of the lumbar spine. IV Contrast: cc . (None if empty) FINDINGS: Alignment: The lumbar vertebral bodies have preserved heights with grade 1 anterolisthesis of L4 on L 5. Cord: The conus medullaris and the distal spinal cord appear unremarkable with regards to their signa l intensity and morphology. Bones/Discs: Mild degeneration changes throughout the spine with osteophyte formation and facet joint arthropathy. Intervertebral disc signal is maintained. Mild inversion recovery edema on the L4-L5 fa cet joints. T12-L1: No evidence of significant spinal canal stenosis or neural foraminal stenosis. L1-L2: No evidence of significant spinal canal stenosis or neural foraminal stenosis. L2-L3: No evidence of significant spinal canal stenosis or neural foraminal stenosis. L3-L4: No evidence of significant spinal canal stenosis or neural foraminal stenosis. L4-L5: Grade 1 anterolisthesis without definitive spondylolysis. Facet joint degeneration with synovi al cyst measuring up to 7 mm displacing the spinal canal with moderate to severe spinal canal stenosi s . Multiple nerve roots in the spinal canal are slightly displaced the synovial cyst to be coming fr om the left facet joint. There is moderate neural foraminal stenosis secondary to facet joint arthrop athy. L5-S1: The disc has a rounded posterior morphology without significant spinal canal stenosis. Facet j oint arthropathy with mild bilateral neural foraminal stenosis. Trace bilateral facet joint effusions . No significant spinal canal or neural foraminal stenosis in the remainder of the visualized levels. Other findings: None. IMPRESSION: Grade 1 anterolisthesis of L4 and L5 with large severe spinal canal stenosis secondary to disc bulge, disc uncovering with synovial cyst appearing to arise from the left facet joint extending 7 mm.
== END | disposition home or self-care (01) ==
LOC: RADMRIMAIN 17:57
PROVIDERS: ATTEND Orthopaedic Surgery
DX: M47.26 Other spondylosis with radiculopathy, lumbar region (principal); M51.16 Intervertebral disc disorders with radiculopathy, lumbar region; M79.662 Pain in left lower leg
CPT/HCPCS: 72148

== ENCOUNTER → 2024-02-20 | Outpatient (CLI) | payer BC | END | disposition home or self-care (01) | LOC: LABWHC1 11:37 | PROVIDERS: ATTEND Orthopaedic Surgery | DX: Z01.812 Encounter for preprocedural laboratory examination (principal); Z22.322 Carrier or suspected carrier of Methicillin resistant Staphylococcus aureus; M43.16 Spondylolisthesis, lumbar region | CPT/HCPCS: 86850; 86900; 86901; 87070 ==

== ENCOUNTER 2024-03-01 05:42 | Observation (INO) | payer BC ==
[2024-02-24 16:07] VITALS: BMI 26.5
--- NOTE | 2024-02-29 05:00 | P.HPOR ---
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 Following initial injury in November 2023 while moving boxes, patient demonstrates progressive neurological symptoms including low back pain, bilateral leg radiation, and increasing weakness/paresthesias despite failed conservative treatments including physical therapy and injections. MRI demonstrates unstable L4-L5 spondylolisthesis with severe bilateral foraminal and central stenosis from large facet cysts, along with significant degenerative changes at L4-S1. Physical exam reveals intact strength but L4-S1 sensory deficits. Patient has obtained surgical clearance and will proceed with L4-L5 MIS TLIF after appropriate surgical counseling regarding risks and benefits. DEMOGRAPHICS: Age: 58 year Height: 5'3" Weight: 145 lbs BP:128/76 BMI: 25.69 kg/m2 Occupation: *Unemployed CHIEF COMPLAINT: Low back pain HISTORY: Patient returns to the office for a preoperative visit preceding her L4-L5 MIS PLIBF. Patient has obtained all her clearances. She continues to reports pain across the low back that radiates into buttocks and bilateral lower extremities. Patient denies any f/c/sob/cp, perineal numbness or tingling, bowel, or bladder incontinence/retention. Patient is ambulatory *independently. 01/14/24 Today Guerline presents for recheck of her low back and MRI read. She continues to have severe and progressive pain in her LE and low back. She is now having more paresthesias in the lower legs than she did before and states they feel weaken than before. She states she continues to have low back pain that is severe and even feels a click in her low back when she goes from Flex to and Ext position which causes her significant pain. She states she has not gotten any relief from medications, Rx or OTC. NO relief from injections. No relief from PT. She is frustrated as she is unable to do the things she normally could do before and is progressively becoming more debilitated due to this. She states she is ready for surgery. 12/11/23: Ms. Arenas presents to the office for an evaluation of her low back pain. Patient describes a constant moderate sharp and aching lumbar pain with an onset of 5 months ago after moving some boxes. In addition to her lumbar pain she states it radiates into her left lower extremity to her knee. Patient states her symptoms are exacerbated with prolonged activity. Patient states she had seen her chiropractor and was told that this pain may be a pulled hamstring. Patient reports that she finds relief of her lower extremity pain with rest and sitting. Patient denies trialing any further treatment modalities. Patient denies any f/ c/sob/cp, perineal numbness or tingling, bowel or bladder incontinence/retention. Patient is ambulatory independently. The patients' past social, medical, family, surgical history, as well as review of systems, have been reviewed. Please refer to the Neurosurgery History and Physical form that has been scanned into our electronic medical record system. 16 points review of systems completed and as stated in HPI, all other systems reviewed are negative. PREVIOUS TREATMENTS: PAST IMAGING: -NO TRAUMA RELATED: -YES WORK RELATED: -NO PT IN LAST 6 MONTHS: -NO PHYSICIAN DIRECTED HOME EXERCISE PROGRAM: -NO ACTIVITY MODIFICATION: -YES MEDICATIONS: -NO ALTERNATIVE INTERVENTIONS (CHIROPRACTIC, ACUPUNCTURE, MASSAGE, RICE): -YES BRACING: -NO INJECTIONS (KARINA, TF, RFA): -NO MEDICAL HISTORY: Past Medical History: Reviewed Past Surgical History: Reviewed Social History: REVIEWED STATED IN CHART Smoking/ Tobacco use: Never Smoker ETOH use: None Substance use: None Family History: REVIEWED STATED IN CHART Current Medications: REVIEWED STATED IN CHART PHYSICAL EXAM: General: AOX3, NAD, Well hydrate, Well nourished HEENT: No lumps or masses Extremities: No color changes, no pooling INTEGUMENT: Appearance: Normal color and turgor Surgical Incisions: n/a Hairy Patches: ABSENT Dorsal Skin Dimples: Normal [employer] spots: ABSENT PALPATION: TTP Midline: NO Paracervical: NO Parathoracic: NO Paralumbar: YES SIJ TESTING: TTP NO LEFT [place] Finger: NEGATIVE LEFT FABER4: NEGATIVE LEFT Compression: NEGATIVE LEFT Distraction:NEGATIVE LEFT Thigh thrust: NEGATIVE LEFT Hip thrust:NEGATIVE LEFT POSTURAL BALANCE: Coronal: BALANCED Sagittal: BALANCED Shoulder height: LEVEL Pelvic Girdle: LEVEL ROM AND APPEARANCE: Neck: UNRESTRICTED Lumbar: UNRESTRICTED Shoulders: Symmetrical Hips: Symmetrical Knees: Symmetrical Hands: Symmetrical Feet: Symmetrical VASCULAR STATUS: RUE- 2 LUE-2 RLE-2 LLE-2 Edema: NONE NEUROLOGICAL EXAMINATION: Mental Status: Awake, alert, oriented fully with normal attention, concentration and memory. Fluent appropriate speech. CRANIAL NERVES: I: Olfactory not tested. II: Visual acuity normal, no visual field deficit noted with confrontation. III,IV: Normal pupillary reflexes & intact extraocular movements without nystagmus. V,: Intact symmetrical facial sensation. VII: Intact symmetrical facial motor movementVIII: Hearing intact. IX,X: Intact gag, swallow, & normal voice. XI: Sternocleidomastoid, trapezius function intact. XII: Tongue midline with normal movements. TENSIONING: L'HERMITTE'S SIGN: NEGATIVE SPURLING'S SIGN: NEGATIVE CUBITAL COMPRESSION: NEGATIVE TINEL'S AT WRIST: NEGATIVE SLR/CROSSED SLR: NEGATIVE MOTOR EXAM (0-5/5, NT) Muscle appearance: Symmetrical, without signs of atrophy or dystrophy UPPER EXTREMITY RIGHT LEFT SHOULDER ABDUCTION 5 5 BICEP 5 5 TRICEP 5 5 WRIST EXTENSION 5 5 INTRINSICS 5 5 FAMILY RESOURCE MANAGEMENT SPECIALIST 5 5 LOWER EXTREMITY RIGHT LEFT HIP FLEXION 5 5 KNEE FLEXION 5 5 KNEE EXTENSION 5 5 DORSIFLEXION 5 5 PLANTAR FLEXION 5 5 EHL 5 5 FHL 5 5 REFLEXES (0-4/2, NT): RIGHT LEFT BICEP 2 2 TRICEP 2 2 BRACHIORADIALIS 2 2 PATELLAR 2 2 ACHILLES 2 2 PATHOLOGICAL REFLEXES: RIGHT LEFT HOFFMANS ABSENT ABSENT CLONUS ABSENT ABSENT BABINSKI ABSENT ABSENT Rectal Tone: INTACT SENSATION (0-4, NT): Intact to light touch and pain sensation to C5-T1 as well as L2-S2 except that noted below Hyperesthesia: ABSENT Dermatomal deficit: YES Levels: L4-S1 GAIT AND FUNCTIONAL EVALUATION: -Ambulatory aids NO -Rombergs test NEGATIVE -Hand and finger dexterity intact bilaterally? YES -Dysdiadochokinesia examination negative bilaterally? YES -Toe heel walk / heel-toe walk intact while maintaining satisfactory balance? YES -Squatting/straightening w/o assistance to a min of 60 degree knee flexion? YES -Single leg stance: ABLE -Trendelenburg sign NEGATIVE IMAGING: * XRAY: Taken at [facility] on 12/11/23 AP/LAT/FLEX/EXT/OB/PELVIS views Spondylosis L4-S1 with grade I unstable spondylolisthesis L4-5 Facet arthroapthy, severe L4-S1 Disc collapse, spondylosis and degenerative changes, severe L4-5 No fracture or leisons. Pelvis congruent w/o fractures * MRI: Taken at [facility] at 12/23/23 w/o constrast of the lumbar spine L4-5 grade I spondylolisthesis, unstable L4-5 large b/l facet cysts causing b/l foraminal stenosis, severe as well as central stenosis L4-S1 spondylosis with degenerative disc disease, degenerative disc herniations causing lumbar stenosis Facet arthroapthy with boggy facets L4-5 and L5-S1. No fractures or lesions noted IMPRESSION: It was my pleasure to have seen and examined Guerline Arenas. I reviewed the patient's clinical syndrome, physical findings, and imaging studies during the appointment today. It is my impression that the patient has a diagnosis of. 1. L4-5 GRADE I SPONDYLOLISTHESIS UNSTABLE 2. L4-5 STENOSIS WITH RADICULOPATHY 3. FACET CYST L4-5, LARGE CAUSING STENOSIS, SEVERE 4. LE PARESTHESIAS 5. LE WEAKNESS PLAN: DISCUSSION: I have discussed with the patient her clinical signs and symptoms as well as imaging and possible outcomes treatments and modalities. At this time the patient is progressively changing getting worse and I do feel that surgical intervention is warranted given her severe stenosis facet cysts unstable spondylolisthesis and progressive neurologic symptoms. We discussed different surgical options at this time she has elected for L4 5 minimally invasive transforaminal lumbar interbody fusion with decompression. -She will obtain preoperative labs EKG and chest x-ray -She will review the risk outlined as outlined below. He wishes to proceed SURGICAL RECOMMENDATION: L4-L5 minimally invasive transforaminal lumbar interbody and posterior lateral fusion with decompression, left Surgical Procedure Risk Review Guerline Arenas is a 58 year old female presenting for evaluation of sudden onset of low back pain and lower extremity paresthesias and weakness. It was my pleasure to have seen and examined Ms. Arenas. In our visit today we have had a chance to go over subjective complaints, physical examination findings and treatments, including the natural course history without intervention and various interventional options. The imaging demonstrates L4-L5 unstable grade 1 spondylolisthesis with facet arthrosis facet bogginess large facet cyst causing bilateral foraminal stenosis as well as central stenosis is severe. L4 through S1 spondylosis. . On physical exam, Ms. Arenas demonstrates Progressive neurologic deficit with decreased strength in the lower extremities bilaterally as well as pierced uses a lower extremity is bilaterally low back pain is severe and debilitating as well as decreased range of motion secondary to this . I explained to the patient that as her condition progresses it could cause progressive neurologic changes deficits weakness numbness tingling paresthesias low back pain continuous . At this time, based on the patients imaging and physical exam, I recommend surgery in the form or a: L4-L5 minimally invasive transforaminal lumbar posterior lateral interbody fusion with decompression . I discussed the risk and benefits of this procedure at length with Ms. Arenas. The patient agreed to consider pursuing the procedure mentioned above. Plan: 1. L4-L5 minimally invasive transforaminal lumbar interbody and posterior lateral fusion with decompression 2. Follow up with PCP for surgical clearance 3. Review of surgical risks and benefits as well as an educational packet on the proposed surgical procedure. Risks: All surgical procedures come with inherent risks, including those related to positioning, anesthesia, intraoperative findings, and postoperative complications. It is important to understand that surgery does not come with any guarantee of a successful outcome as complications and adverse events are always possible. The patient was given a handout in office today discussing the surgical procedure and risks associated with the intervention, both of which were discussed with the patient. These risks include but are not limited to the following: ? Experiencing same, different or even worse symptoms in back, neck, arms, or legs compared to before surgery. ? Requiring further surgery or other forms of treatment presently or at some time in the future at same or other levels of the intended spine surgery. ? On an extreme but fortunately relatively rare basis severe complication such as blindness, stroke, heart attack, temporary and/or permanent nerve injury, paralysis, coma, or may occur, sometimes without known explanation. ? Surgical complications may include but are not limited to risk of infection, fluid accumulation in the surgical dissection site, including a seroma or hematoma, that requires additional surgery, wound drainage, bleeding, new numbness or weakness, vision changes/loss, spinal fluid leakage, non-healing and/or infected incision, headaches, difficulty or inability to swallow, hoarseness, hemopneumothorax, pneumothorax, impotence, retrograde ejaculation, vaginal dryness; injury to nerves, spinal cord, blood vessels, lymphatics or other vital organs (i.e., bowel injury, injury to the great vessels); heterotopic bone formation; complications related to the hardware such as screws, rods, cages including misplaced hardware, device failure, instrumentation at the wrong spine level, hardware fracture/breakage, or hardware loosening; vertebral failure of the spinal column above or below the newly placed hardware; retained surgical instrumentations or devices and the need for further surgery. ? Medical risks of the planned spine surgery include but are not limited to generalized Infections to the whole body or local areas outside of the surgical site (sepsis), heart attack, bleeding, anaphylaxis, meningitis, seizure, epilepsy, hearing loss, burn ontiveros, laceration of the head or other areas of the body, bruising, hypersensitivity of the skin, bladder over distension; allergic reaction; shoulder injury related to positioning; fat, blood and air clots to other areas of the body like heart, lungs, brain; failure of internal organs such as lungs, kidneys, liver and excessive bleeding. If blood transfusions are necessary, note that transfusions may cause intolerance reactions such as anaphylaxis or other complex reactions. Despite best efforts, the results of spine surgery might not heal in terms of bone, soft tissues such as skin, fascia, ligaments, and joints. Additionally, in order to achieve best possible results, spine surgery may be carried out beyond the initially planned levels and involve decompression, fusion including insertion of hardware at levels other than the original intended area of surgical interest change some portions of the procedure in order to ensure the b est possible outcomes. With spine surgery and spinal fusion, there are different off label uses of instrumentation (devices, implants and hardware) as well as biological substances (bone morphogenic proteins, demineralized bone matrix) as well as using extra bone from allograft sources (i.e. cadaver bone) or autograft (iliac crest bone, ribs, or the spine itself). The patient has been given information about these practices and their inherent risks and benefits. Norris Zhang Physician Assistants are medically trained surgical providers who function in the outpatient, inpatient, and operating room setting under the direct supervision of the attending surgeon.They assist in the operating room with direct supervision of the attending surgeons. The patient has had a chance to review all the listed information, has been given print outs detailing this information, and has had all his/her questions answered to their satisfaction. It was my pleasure to have seen and examined Ms. Arenas. In our visit today we have had a chance to go over my understanding of our patient's current condition, the natural course history without intervention and various interventional options. Questions were invited and answered, and the patient wishes to proceed as outlined above. I have seen and examined the patient for 25 minutes and we have spent more than 50% of the time in repeat and detailed counseling about the patient's condition, its natural course history with out and as much as can be predicted with surgery and re-review of various surgical treatment options. MEDICAL NECESSITY STATEMENT: Surgical intervention is deemed medically necessary for this 58-year-old female due to documented progressive neurological deterioration and failed conservative management. Patient demonstrates objective findings of unstable L4-L5 spondylolisthesis with severe bilateral foraminal and central stenosis, confirmed by MRI imaging from 12/23/2023. Clinical symptoms include progressive lower extremity weakness, paresthesias, and radiculopathy, with documented L4-S1 dermatomal deficits on examination. Conservative measures including physical therapy, medication management, and injections have failed to provide symptomatic relief. The patient's condition continues to worsen, impacting activities of daily living and quality of life. Given the radiographic evidence of significant structural pathology correlating with progressive neurological symptoms, surgical decompression and stabilization via MIS TLIF is medically indicated to prevent further neurological deterioration and restore functional capacity. FOLLOW UP: POST OP PLAN AT NEXT VISIT: XR LUMBAR POST OP PATIENT EDUCATION: Medications Reviewed: YES In our visit today the patient and I have had a chance to go over my understanding of their current condition, the natural course history without intervention and various interventional options. Questions were invited and answered, and the patient wishes to proceed as outlined above. I will be sure to keep you updated after the patient returns here for further f ollow-up. Thank you again for your referral. Please do not hesitate to contact me if you have any further questions. Varun Ross [facility] [address] [place] [address], [address] [address] . This message is confidential, intended only for the named recipient(s) and may contain information that is privileged or exempt from disclosure under applicable law. If you are not the intended recipient(s), you are notified that the dissemination, distribution or copying of this information is prohibited. If you received this message in error, please notify the sender then delete this message. Past Medical History Past Medical History: GERD/Reflux, Thyroid Disorder Additional Past Medical History / Comment(s): GRAVES,-HAD IODINE [place]., occasional back pain, hiatal hernia., History of Any Multi-Drug Resistant Organisms: None Reported Past Surgical History: Section, Cholecystectomy, Tubal Ligation, Uter ine Ablation Additional Past Surgical History / Comment(s): C-S X3., PAIN CLINIC PROCEDURES, COLONOSCOPY Past Anesthesia/Blood Transfusion Reactions: Family History of Problems w/ Anesthesia Additional Past Anesthesia/Blood Transfusion Reaction / Comment(s): SISTER, PONV. Smoking Status: Former smoker - Past Family History Father Family Medical History: CVA/TIA Medications and Allergies Home Medications Medication Instructions Recorded Confirmed Type Levothyroxine Sodium [Synthroid] 88 mcg PO DAILY 10/27/14 01/26/19 History Calcium Carbonate [Calcium] 600 mg PO DAILY 01/26/19 01/26/19 History Famotidine [Pepcid AC] 10 mg PO BID 01/26/19 01/26/19 History Allergies Allergy/AdvReac Type Severity Reaction Status Date / Time Cephalosporins Allergy Rash/Hives Verified 02/24/24 15:58 shellfish derived [Shellfish] Allergy Swelling Verified 02/24/24 15:58 THROAT, SORENESS Sulfa (Sulfonamide Allergy Rash/Hives Verified 02/24/24 15:58 Antibiotics) sulfamethoxazole Allergy Rash/Hives Verified 02/24/24 15:58 [From Decra] trimethoprim [From Decra] Allergy Rash/Hives Verified 02/24/24 15:58 Physical Examination Osteopathic Statement: *. No significant issues noted on an osteopathic structural exam other than those noted in the History and Physical/Consult.
[~2024-03-01 05:42] MED LIST changes: -LACTATED RINGERS 1,000 ML IV SCH; +ONDANSETRON 4 MG/2 ML VIAL IVP PRN; +TRANEXAMIC 1,000 MG/100ML-NACL 1,000 MG in SALINE 1 100ML.BAG IVPB PRN
[2024-03-01] MEDS: IV FLUID CONTINUATION 1,000 ML IV ONE ×4 (06:30)
[2024-03-01] MEDS: LACTATED RINGERS 1,000 ML IV SCH (06:59)
--- NOTE | 2024-03-01 07:16 | P.PN ---
Progress Note - Text Progress Note Date: 03/01/24 H&P UPDATE: Pt se in pre op area. consent confirmed. discussed surgery and risks again as outlined in review. H&P confirmed with no changes. Pt willing to proceed with surgery.
[2024-03-01] MEDS: ONDANSETRON 4 MG/2 ML VIAL IVP ONE (07:17)
[2024-03-01] MEDS: DEXAMETHASONE SOD PHOSPHATE 4 MG/ML 1 ML VIAL IV ONE (07:18)
[2024-03-01] MEDS: ACETAMINOPHEN TAB 500 MG TAB PO PRN (07:18)
[2024-03-01] MEDS: GABAPENTIN 300 MG CAP PO PRN (07:18)
[2024-03-01] MEDS: VANCOMYCIN 1,000 MG in SODIUM CHLORIDE 0.9% 250 ML IVPB PRN (07:26)
[2024-03-01] MEDS ORDERED: MIDAZOLAM 2 MG/2 ML VIAL ONE (07:30)
[2024-03-01] MEDS ORDERED: PROPOFOL 10 MG/ML 20 ML VIAL IV ONE (07:30)
[2024-03-01] MEDS ORDERED: TRANEXAMIC 1,000 MG/100ML-NACL PREMIX BAG ONE (07:30)
[2024-03-01] MEDS ORDERED: LIDOCAINE 1% INJ 10MG/ML (20 ML MDV) ONE (07:30)
[2024-03-01] MEDS ORDERED: SUCCINYLCHOLINE CHLORIDE 200 MG/10 ML VIAL IV ONE (07:30)
[2024-03-01] MEDS ORDERED: fentaNYL (PF) 50 MCG/ML 2 ML AMP ONE (07:30)
[2024-03-01] MEDS ORDERED: ROCURONIUM 10 MG/ML (5 ML VIAL) IV ONE (07:30)
[2024-03-01] MEDS: THROMBIN (BOVINE) 5,000 UNIT VIAL TOPICAL ONE (08:38)
[2024-03-01] MEDS: LIDOCAINE 2%-EPI 1:100,000 20 ML VIAL SQ ONE (08:38)
[2024-03-01] MEDS: BUPIVACAINE (PF) 0.5% 30 ML VIAL SQ ONE (08:38)
[2024-03-01] MEDS: LACTATED RINGERS 1,000 ML IV ONE (08:39)
--- NOTE | 2024-03-01 10:07 | P.OP ---
Date of Procedure: 03/01/24 Preoperative Diagnosis: 1. L4-5 GRADE I SPONDYLOLISTHESIS, UNSTABLE 2. L4-5 STENOSIS, SEVERE WITH CYST FORMATION 3. LE RADICULOPATHY 4. LLE WEAKNESS 5. LOW BACK PAIN Postoperative Diagnosis: 1. L4-5 GRADE I SPONDYLOLISTHESIS, UNSTABLE 2. L4-5 STENOSIS, SEVERE WITH CYST FORMATION 3. LE RADICULOPATHY 4. LLE WEAKNESS 5. LOW BACK PAIN Procedure(s) Performed: 1. L4-5 POSTEROLATERAL AND INTERBODY FUSION 2. L4-5 NONSEGMENTAL INSTRUMENTATION 3. L4-5 LAMINECTOMY, FACETECTOMY AND FORAMINOTOMY FOR NEURAL DECOMPRESSION AND CYST REMOVAL WELL BIOPSY AND CAGE PLACEMENT 4. REMOVAL CYST L4-5 REQUIRING LAMINECTOMY 5. INSERTION OF BIOMECHANICAL CAGE DEVICE L4-5 6. USE OF [employer] NAVIGATION FOR ASSISTANCE IN ACCURATE SCREW PLACEMENT USE OF IONM ALL SCREWS TESTING > 18 mA Implants: MONIQUE EVEREST RODS AND SCREWS GLOBUS SABLE CAGE 15 DEG, 10MM 10-17MM HEIGHT ARTHROCELL, ALLOCELL, CONTOUR, MAGNATOS, AUTOGRAFT Anesthesia: GETA Surgeon: Varun Peck Manager Sound #1: Bennie Senior (WAS PRESENT AND ASSISTED WITH ALL ASPECTS OF THE CASE FROM POSITION TO DRESSING PLACEMENT) Estimated Blood Loss (ml): 50 IV fluids (ml): 1,400 Urine output (ml): 0 Pathology: none sent Condition: stable Disposition: PACU Indications for Procedure: Guerline Arenas is a 58 year old female presenting for evaluation of sudden onset of low back pain and lower extremity paresthesias and weakness. It was my pleasure to have seen and examined Ms. Arenas. In our visit today we have had a chance to go over subjective complaints, physical examination findings and treatments, including the natural course history without intervention and various interventional options. The imaging demonstrates L4-L5 unstable grade 1 spondylolisthesis with facet arthrosis facet bogginess large facet cyst causing bilateral foraminal stenosis as well as central stenosis is severe. L4 through S1 spondylosis. . On physical exam, Ms. Arenas demonstrates Progressive neurologic deficit with decreased strength in the lower extremities bilaterally as well as pierced uses a lower extremity is bilaterally low back pain is severe and debilitating as well as decreased range of motion secondary to this . I explained to the patient that as her condition progresses it could cause progressive neurologic changes deficits weakness numbness tingling paresthesias low back pain continuous . At this time, based on the patients imaging and physical exam, I recommend surgery in the form or a: L4-L5 minimally invasive transforaminal lumbar posterior lateral interbody fusion with decompression . I discussed the risk and benefits of this procedure at length with Ms. Arenas. The patient agreed to consider pursuing the procedure mentioned above. Plan: 1. L4-L5 minimally invasive transforaminal lumbar interbody and posterior lateral fusion with decompression Description of Procedure: L4-L5 MIS PLIBF SOPHIE The patient was seen and examined in the preoperative area. All preoperative protocols were followed. Informed consent was obtained, risks and benefits of the procedure were discussed at length. Risks including bleeding infection damage to the surrounding tissue and risk of reoperation were discussed with the patient. Risk of anesthesia up to and including was discussed with the patient. These are outlined in the risk review. They were willing to accept these risks and all the risks of surgery. The patient was given a weight-based dose of antibiotics in the form of 2 g Ancef. The patient was seen and evaluated by the anesthesia team who deemed them fit for surgery. The site was marked, the patient was willing to proceed with the procedure. The patient was transferred to the operative suite by the Department of anesthesia. They were then drifted off to sleep by the department anesthesia and GETA was performed. The patient tolerated this well. Yoon catheter was placed by nursing staff, a-traumatically. Once confirmation of lines and ventilation the patient was transferred to a prone Ozzy table very carefully. All bony prominences including wrists, elbows, axilla, chest, hips, and thighs, and feet were padded very well. Special attention was paid to the genitalia, and these were padded accordingly. SCDs were placed on bilateral lower extremities and were connected. Arms were well padded and placed on arm boards up and out in the 90/90 position. Once in position, again we confirmed good ventilation capabilities and that lines were running appropriately. The patient s Lumbar spine was then exposed. 1010s were placed outlining the incision site. Standard alcohol was used to clean the incision site and allowed to dry. C-arm was used to needle localize the pedicles at L4-5 and bio-perry the patient and confirm level for incision which was marked with a skin marker. Operative briefing was performed with all teams and everyone in agreement to proceed. The patient was then prepped and draped in a normal sterile fashion. Timeout was then performed, and all parties agreed with the procedure to be performed. Skin nicks made and pins placed in the PSIS on the right for the Monique tracker. 3D Zheim spin was then registered and confirmed to be accurate. Navigated jamshidi and drill-guide were then used to target pedicles bilaterally at L4 and L5. Once accessed, wires were placed in their void. This was repeated at L5 bilaterally. Skin incision was then made along these wires and a perfect scalpel was used over the wire to create a path and measure screw length. Screws were then placed over wires on the contralateral side. Once the screw was at the back of the body wire was removed. The screws were confirmed to be in good position on AP and lateral. We then tested screws and they all tested above 18 mA. Attention was then turned to interbody fusion at L4-5. Tubular retractor system was placed at the interspace of L4-5 using a biplanar c arm. Once in position and dilated up to 26mm tube it was locked to the bed and confirmed in good position. Microscope was then brought in for visualization. Limited myomectomy was performed and laminectomy, complete facetectomy and foraminotomy performed at L4-5 using high speed chandan and Kerrison rongeur. The ligamentum was removed and the dural sac decompressed. Exiting and traversing roots visualized and decompressed. Neural elements were then protected, and disc space accessed with an osteotome. Sequential shaving then done under lateral imaging and complete discectomy performed using maia, pituitary and curettes. Once good bleeding endplates accomplished and good height islam with trials, a combination of autograft, allograft and synthetic placed anterior in the disc space. The cage was then selected and impacted into place under lateral imaging. The cage was then expanded restoring height, lordosis and alignment. The cage was backfilled with bone graft through a funnel. The cytopathologist was removed and the area inspected. Good cage placement, stable cage and no injuries. Area was irrigated copiously, and meticulous hemostasis achieved. We then further de compressed this level over the top and cranial and caudal exposing and defining the cystic structure posterior within the ligament which was moving down towards the traversing root and adheared to it. Through careful and meticulous dissection we were able to free the root and dural sac from this cyst. This was sent for pathology. It appeard to be a ligamental cyst and facet cyst. There were no injuries to the dura or roots. No CSF leak. We irrigated the area and wound bed well. Deep was placed surgicel over the exposed roots and sac. The tubular retractor was then removed under direct visualization. Screws were then selected and placed over the previously placed wires on the ipsilateral side. This was done in the fashion described above. Screws were then tested, and all tested above 20 mA. Shells were then placed on the tabs. Humberto length was then measured, and rods selected. They were then placed through the MIS tabs, subfascial and locked into L5 bilateral and sequentially reduced into L4 for listhesis reduction. These were then locked into place with set screws and finally tightened. Humberto holders removed and images taken showing good placement of rods, good lordosis and islam of height. Tabs were broken off. Wounds were then copiously irrigated with NSS. Chandan used for TP decortication and mixture of MagnatOs, allograft and autograft packed posterolateral. Fascia was then closed with 0 Vircyl. Deep subq closed with 0 Vicryl. Superficial subq closed with 2-0 Vicryl and skin with karlos. Wound edges approximated very well. Wound was then cleaned with alcohol and dried. Wounds dressed in Optifoam dressings. The patient was then transferred off the table back to their hospital bed a- traumatically. They were extubated by the department of anesthesia. They were then transferred to PACU in stable condition having tolerated the procedure with no complications.
[2024-03-01] MEDS ORDERED: ONDANSETRON 4 MG/2 ML VIAL IVP PRN (10:13)
[2024-03-01] MEDS ORDERED: SENNOSIDES-DOCUSATE SODIUM 1 EACH TAB PO PRN (10:13)
[2024-03-01] MEDS ORDERED: MAGNESIUM HYDROXIDE 2,400 MG/30 ML CUP PO PRN (10:13)
[2024-03-01] MEDS ORDERED: VANCOMYCIN IV PER PHARMACY 1 EACH MISC MISCELLANE PRN (10:19)
[2024-03-01] MEDS: HYDROmorphone 0.5 MG/0.5 ML SYRINGE IVP PRN ×2 (10:37→18:54)
--- NOTE | 2024-03-01 11:21 | FL ---
EXAMINATION TYPE: FL guidance operating room, XR lumbar spine 2 or 3V DATE OF EXAM: 03/01/2024 10:12 AM COMPARISON: Pre Operative Images if available both CT/MRI or plain film CLINICAL INDICATION: Female, 58 years old with history of L4-L5 fusion; TECHNIQUE: FL guidance operating room, XR lumbar spine 2 or 3V, multiple fluoroscopic images provided for procedure. Total fluoroscopy time: 58 seconds Total submitted images to PACS: 3 DAP: 1004.09 DAP mGym2 Gycm2 uGym2 cGycm2 or equivalent. FINDINGS: Fluoroscopic images during injection for pain management demonstrate multilevel degeneration changes throughout the spine. No evidence for fracture. No acute process identified. IMPRESSION: 1. No evidence for intraoperative complication. 2. Please see the operative/procedural note for further details. [facility], , 03/01/2024 11:19 AM
[2024-03-01] MEDS: ACETAMINOPHEN TAB 325 MG TAB PO SCH (16:32)
[2024-03-01] MEDS: HYDROcodone/APAP 5-325MG 1 EACH TAB PO PRN (16:33)
[2024-03-01] MEDS: GABAPENTIN 300 MG CAP PO SCH (16:34)
[2024-03-01] MEDS: VANCOMYCIN 1,250 MG in SODIUM CHLORIDE 0.9% 250 ML IVPB SCH (20:17)
--- NOTE | 2024-03-01 22:01 | CT ---
EXAMINATION TYPE: CT lumbar spine wo con DATE OF EXAM: 03/01/2024 6:27 PM COMPARISON: None. CLINICAL INDICATION: Female, 58 years old with history of s/p L4-L5 MIS PLIF, POST OP TECHNIQUE: CT of the lumbar spine is performed on a spiral scan at 3 mm thick sections. Reconstructed images are performed in the coronal and sagittal planes. Contrast used: mL of , (none if empty) Oral contrast used: (none if empty) CT DLP: 655.2 mGycm, Automated exposure control for dose reduction was used. FINDINGS: T12-L1: No focal disc herniation or significant disc bulge is evident. No spinal canal stenosis or neural foraminal stenosis is present. L1-L2: No focal disc herniation or significant disc bulge is evident. No spinal canal stenosis or n eural foraminal stenosis is present L2-L3: Broad-based disc bulge with mild anterior thecal sac compression. No AP spinal canal stenosis. Neural foramen are patent. Some facet degenerative changes are present L3-L4: No focal disc herniation or significant disc bulge is evident. No spinal canal stenosis or n eural foraminal stenosis is present L4-L5: Postsurgical changes with pedicle screws and fixation rods are present. This causes some limit ation due to beam hardening artifact. Left hemilaminectomy has been performed. Postsurgical changes p resent L5-S1: No focal disc herniation or significant disc bulge is evident. No spinal canal stenosis or n eural foraminal stenosis is present Vertebral alignment appears normal. IMPRESSION: Postsurgical L4-5 fixation changes. Disc spacer is in place. There is some increased density and post surgical change anterior to the disc space [facility], , 03/01/2024 9:59 PM
[2024-03-01] MEDS: CYCLOBENZAPRINE 5 MG TAB PO PRN (22:19)
[2024-03-02 08:26] LABS: Basophils # (A) 0.02 X 10*3/uL (0.00-0.10); Basophils % (A) 0.3 %; Eosinophils # (A) 0.01 X 10*3/uL (0.04-0.35); Eosinophils % (A) 0.1 %; HCT 32.5 % (37.2-46.3); HGB 10.7 g/dL (12.0-15.0); Lymphocytes # (A) 1.23 X 10*3/uL (0.90-5.00); Lymphocytes % (A) 17.4 %; MCH 32.5 pg (27.0-32.0); MCHC 32.9 g/dL (32.0-37.0); MCV 98.8 FL (80.0-97.0); Mean Platelet Volume 11.5 FL (9.5-12.2); Monocytes # (A) 0.71 X 10*3/uL (0.20-1.00); Monocytes % (A) 10.1 %; NRBC Per 100 WBC 0 X 10*3/uL (0.00-0.01); Neutrophils # (A) 5.06 X 10*3/uL (1.80-7.70); Neutrophils % (A) 71.7 %; Platelet Count 198 X 10*3/uL (140-440); RBC 3.29 X 10*6/uL (4.10-5.20); RDW 12.7 % (11.5-14.5); WBC 7.06 X 10*3/uL (4.50-10.00)
[2024-03-02] MEDS: HYDROmorphone 1 MG/ML 1 ML SYRINGE IVP PRN (08:27)
[2024-03-02 09:17] LABS: BUN/Creat Ratio 13.86 Ratio (12.00-20.00); Blood Urea Nitrogen 9.7 mg/dL (9.0-27.0); Calcium 8.7 mg/dL (8.7-10.3); Carbon Dioxide 25.5 mmol/L (21.6-31.8); Chloride 107 mmol/L (96-109); Glucose 107 mg/dL (70-110); Potassium 4.1 mmol/L (3.5-5.5); Sodium 141 mmol/L (135-145)
[2024-03-02] MEDS: LEVOTHYROXINE 75 MCG TAB PO SCH (10:32)
[2024-03-02] MEDS: LIOTHYRONINE SODIUM 5 MCG TAB PO SCH (10:32)
[2024-03-02] MEDS: FAMOTIDINE 20 MG TAB PO SCH (10:32)
--- NOTE | 2024-03-02 10:53 | P.PN ---
Subjective Progress Note Date: 03/02/24 Principal diagnosis: Low back pain Patient is evaluated today at bedside, she is resting in her hospital bed. Patient has been doing pretty well with the recovery thus far. She has been ambulating with the assistance of her LSO brace. She is urinating with no issues, she is passing gas at this time. She feels that the left lower extremity symptoms, more specifically the numbness and tingling is slightly improved. She denies any loss of bowel or bladder function at this time. Objective - Vital Signs Vital signs: Vital Signs Temp 99.3 F 03/02/24 07:54 Pulse 86 03/02/24 07:54 Resp 18 03/02/24 09:55 BP 94/55 03/02/24 07:54 Pulse Ox 95 03/02/24 07:54 FiO2 Intake & Output 03/01/24 03/02/24 03/02/24 18:59 06:59 18:59 Intake Total 2049 Output Total 650 1200 Balance 1400 -1200 Weight 68.7 kg Intake: IV 2049 Output: Urine 600 1200 Estimated Blood Loss 50 Other: Voiding Method Toilet Toilet # Voids 1 2 1 - Exam Gen: AOx3, NAD VSS stable at this time Integument: Postop dressing is in good position condition, no active drainage Palpation: Mild tenderness with palpation to the lower lumbar spine ROM: Full range of motion in all major muscle groups of the bilateral upper and lower extremities, no focal deficits appreciated Sensory Exam: Senory exam to light touch is intact C5-T1 Senosry exam to light touch is intact L2-S1 Motor: 4/5 strength appreciated in the left lower extremity with hip flexion, knee extension, knee flexion, plantarflexion, dorsiflexion, EHL, FHL 5/5 strength appreciated in the right lower extremity with hip flexion, knee extension, knee flexion, plantarflexion, dorsiflexion, EHL, FHL Reflexes: 2/4 in all UE and LE Negative clonus bilaterally - Labs CBC & Chem 7: 03/02/24 03:01 03/02/24 03:01 Labs: Abnormal Lab Results - Last 24 Hours (Table) 03/02/24 Range/Units 03:01 RBC 3.29 L (4.10-5.20) X 10*6/uL Hgb 10.7 L (12.0-15.0) g/dL Hct 32.5 L (37.2-46.3) % MCV 98.8 H (80.0-97.0) FL MCH 32.5 H (27.0-32.0) pg Eosinophils # 0.01 L (0.04-0.35) X 10*3/uL Assessment and Plan Assessment: Postoperative day #1 status post L4-L5 posterior lateral decompression and fusion Plan: Pain control, discussed with patient to try to avoid the IV narcotics at this time. We will continue to work in the oral medications. DVT prophylaxis, aspirin 81 mg twice a day while in hospital Wound care, leave dressing in place at this time, will change dressing at bedside on 03/03/2024 Weight-bear as tolerated with walker. Patient will utilize LSO brace when ambulating longer distances PT/OT recommendations Medical recommendations appreciated Discharge planning: Will keep patient in hospital one additional night for pain control, plan for discharge to home with home health care on 03/03/2024 Time with Patient: Less than 30
[2024-03-02] MEDS: HYDROcodone/APAP 10-325MG 1 EACH TAB PO PRN (14:09)
--- NOTE | 2024-03-02 15:19 | P.CONS ---
History of Present Illness - Reason for Consult Consult date: 03/02/24 - History of Present Illness History of present illness: This is a 58-year-old female with past medical history significant for hypothyroidism who was following spine orthopedics for chronic back pain. Patient recently had a stress test with cardiology which was negative. Patient underwent L4-L5 posterior lateral decompression and fusion on 03/01/2024. Intermittent consulted for medical management. Patient pain is controlled, doing well postoperatively, denied any flatus or bowel movement, tolerating p.o. intake. No nausea or vomiting. Denied any fever, chills, chest pain, palpitation, shortness of breath, sore throat, weakness numbness to extremities. Left lower extremity symptoms numbness and tingling slightly better postoperatively. Denied any issues with bowel or bladder. Temperature 99.3, heart rate 86, respiratory rate 17, blood pressure 94/55, saturating 95% on room air. WBCs 7, hemoglobin 10.7, platelet 198. BMP unremarkable. REVIEW OF SYSTEMS: CONSTITUTIONAL: No fever, no malaise, no fatigue. HEENT: No recent visual problems or hearing problems. Denied any sore throat. CARDIOVASCULAR: No chest pain, orthopnea, PND, no palpitations, no syncope. PULMONARY: No shortness of breath, no cough, no hemoptysis. GASTROINTESTINAL: No diarrhea, no nausea, no vomiting, no abdominal pain. NEUROLOGICAL: No headaches, no weakness, no numbness. HEMATOLOGICAL: Denies any bleeding or petechiae. GENITOURINARY: Denies any burning micturition, frequency, or urgency. MUSCULOSKELETAL/RHEUMATOLOGICAL: Denies any joint pain, swelling, or any muscle pain. ENDOCRINE: Denies any polyuria or polydipsia. The rest of the 14-point review of systems is negative. PHYSICAL EXAMINATION: GENERAL: The patient is A&O x3, NAD HEENT: EOMI, Sclerae anicteric, Moist Mucous membranes Neck: Supple, Non tender, No JVD PULMONARY: Equal breath souds B/L, No wheezing, No crackles. CARDIOVASCULAR: S1, S2 present. No murmurs, rubs, or gallops. ABDOMEN: Soft, nontender, nondistended, normoactive bowel sounds. No guarding or rebound tenderness. MUSCULOSKELETAL: No edema, No cyanosis. No clubbing. Normal ROM. Intact peripheral pulses. Lower back incisiondressing intact. NEUROLOGICAL: CN 2-12 grossly intact. No FND Assessment and plan: Status post L4-5 posterior lateral decompression and fusion Perioperative antibiotics, DVT prophylaxis and pain management per primary PT/OT consult Bowel/bladder protocol Neurovascular checks Hypothyroidism: Continue home medication. DVT prophylaxis Per primary Monitor vital signs and labs Labs and medication were reviewed. Continue same treatment. Further recommendations as per clinical course of the patient Dictation was produced using [employer] (formerly [employer]) dictation software. please excuse any grammatical, word or spelling errors. Past Medical History Past Medical History: GERD/Reflux, Thyroid Disorder Additional Past Medical History / Comment(s): GRAVES,-HAD IODINE [place]., occasional back pain, hiatal hernia., History of Any Multi-Drug Resistant Organisms: None Reported Past Surgical History: Section, Cholecystectomy, Tubal Ligation, Uterine Ablation Additional Past Surgical History / Comment(s): C-S X3., PAIN CLINIC PROCEDURES, COLONOSCOPY Past Anesthesia/Blood Transfusion Reactions: Family History of Problems w/ Anesthesia Additional Past Anesthesia/Blood Transfusion Reaction / Comm: SISTER, PONV. Smoking Status: Former smoker - Past Family History Father Family Medical History: CVA/TIA Medications and Allergies Home Medications Medication Instructions Recorded Confirmed Type Calcium Carbonate [Calcium] 600 mg PO DAILY 01/26/19 03/01/24 History Famotidine [Pepcid AC] 40 mg PO BID 01/26/19 03/01/24 History Levothyroxine Sodium [Synthroid] 75 mcg PO DAILY 03/01/24 03/01/24 History Liothyronine Sodium [Cytomel] 5 mcg PO DAILY 03/01/24 03/01/24 History Allergies Allergy/AdvReac Type Severity Reaction Status Date / Time Cephalosporins Allergy Rash/Hives Verified 03/01/24 06:18 shellfish derived [Shellfish] Allergy Swelling Verified 03/01/24 06:18 THROAT, SORENESS Sulfa (Sulfonamide Allergy Rash/Hives Verified 03/01/24 06:18 Antibiotics) sulfamethoxazole Allergy Rash/Hives Verified 03/01/24 06:18 [From ] trimethoprim [From ] Allergy Rash/Hives Verified 03/01/24 06:18 Physical Exam Vitals: Vital Signs Temp Pulse Resp BP Pulse Ox 03/02/24 09:55 18 03/02/24 07:54 99.3 F 86 17 94/55 95 03/02/24 01:06 99.1 F 77 16 94/56 93 L 03/01/24 19:19 98.5 F 91 18 109/69 97 03/01/24 16:33 98.0 F 87 17 110/67 96 03/01/24 16:00 83 16 96/62 99 Intake and Output 03/02/24 03/02/24 03/02/24 06:59 14:59 22:59 Intake Total 250 Output Total 1200 Balance -950 Intake: Oral 250 Output: Urine 1200 Other: Voiding Method Toilet # Voids 2 1 Results CBC & Chem 7: 03/02/24 03:01 03/02/24 03:01 Labs: Abnormal Lab Results - Last 24 Hours (Table) 03/02/24 Range/Units 03:01 RBC 3.29 L (4.10-5.20) X 10*6/uL Hgb 10.7 L (12.0-15.0) g/dL Hct 32.5 L (37.2-46.3) % MCV 98.8 H (80.0-97.0) FL MCH 32.5 H (27.0-32.0) pg Eosinophils # 0.01 L (0.04-0.35) X 10*3/uL
[2024-03-03 06:40] LABS: African American GFR (CKD) >90 (>60 ml/min/1.73 sqM); Non-African American GFR(CKD) >90 (>60 ml/min/1.73 sqM)
--- NOTE | 2024-03-03 08:03 | P.PN ---
Subjective Progress Note Date: 03/03/24 Principal diagnosis: 1. L4-5 GRADE I SPONDYLOLISTHESIS UNSTABLE 2. L4-5 STENOSIS WITH RADICULOPATHY 3. FACET CYST L4-5, LARGE CAUSING STENOSIS, SEVERE 4. LE PARESTHESIAS 5. LE WEAKNESS Patient seen and examined this morning. Patient is resting comfortable in bed. LSO brace is at bedside. Patient states that she has been amatory within room in tolerating activity while she does report that her pain is managed on current regimen. She does express some difficulty with standing from a sitting position. Educated patient that this will get better with time. Patient is being discharged home with home care. Discharge instructions have been discusse d. No acute concerns. Objective - Vital Signs Vital signs: Vital Signs Temp 99.8 F H 03/03/24 01:38 Pulse 98 03/03/24 01:38 Resp 20 03/03/24 01:38 BP 101/63 03/03/24 01:38 Pulse Ox 93 L 03/03/24 01:38 FiO2 Intake & Output 03/02/24 03/03/24 03/03/24 18:59 06:59 18:59 Intake Total 430 Output Total 1200 Balance -770 Intake: Oral 430 Output: Urine 1200 Other: Voiding Method Toilet Toilet # Voids 1 2 - Exam Physical Examination General: The patient is awake and alert, in no acute distress Skin: Skin is warm and dry with no obvious rashes or lesions. Surgical incision to the lumbar spine, dressing is clean dry and intact. Neck: The neck is supple, there is no tenderness and ROM intact. Cardiovascular: There is a regular rate and rhythm. Respiratory: Respirations are non-labored.. Gastrointestinal: Soft, non-distended, non-tender abdomen. Back: There is no tenderness to palpation in the midline, paralumbar, parathoracic or buttocks region. There is no obvious deformity. Musculoskeletal: ROM limited secondary to pain and stiffness from surgical procedure. Right: shoulder abduction 5/5, elbow flexors 5/5, wrist dorsiflexors 5/5. finger abductor 5/5, trim die maker 5/5, hip flexor 4/5, knee flexor 5/5, ankle dorsiflexor 5/5, ankle plantarflexion 5/5 and extensor hallucis 5/5. Left: shoulder abduction 5/5, elbow flexors 5/5, wrist dorsiflexors 5/5. finger abductor 5/5, trim die maker 5/5, hip flexor 4/5, knee flexor 5/5, ankle dorsiflexor 5/5, ankle plantarflexion 5/5 and extensor hallucis 5/5. Neurological: CN 2-12 intact. There are no obvious motor or sensory deficits. Movement and coordination equal and intact. Sensory exam to light touch intact C5-T1 and intact from L2-S1. Reflexes 2/4 in bilateral upper and lower extremities. Negative Hoffmans, babinski, and clonus signs. Psychiatric: Cooperative, appropriate mood & affect, normal judgment. - Labs CBC & Chem 7: 03/02/24 03:01 03/03/24 06:16 Labs: Abnormal Lab Results - Last 24 Hours (Table) 03/02/24 Range/Units 03:01 RBC 3.29 L (4.10-5.20) X 10*6/uL Hgb 10.7 L (12.0-15.0) g/dL Hct 32.5 L (37.2-46.3) % MCV 98.8 H (80.0-97.0) FL MCH 32.5 H (27.0-32.0) pg Eosinophils # 0.01 L (0.04-0.35) X 10*3/uL Assessment and Plan Assessment: Postop day 2: L4-L5 posterolateral interbody fusion Plan: -Appreciate plan consultant and team management. -Activity: Ambulate QID, OOB all meals, up and about, limit lifting bending twisting to less than 5 lbs. Use walker or cane if needed for stability. -Daily PT/OT, increase ambulation strength and balance. -Brace when up and about, not needed in bed or chair -Pain control: Adequate at this time -Meds: reviewed -GI ppx: senna, Miralax -DVT PPX: Aspirin 81mg daily -Hygiene: Maintain incision clean and dry. May change dressing as needed, please document in notes if performed. Meticulous cleaning after BMs away from the inci denisa site -Encourage IS 10x/hr -Dispo: Discharge home with homecare later today *I reviewed and discussed this case with my attending Dr. Peck, whom has reviewed this chart and films and is in agreement with assessment and plan of care as outlined above. I have personally seen and examined the patient, performed the documentation and the assessment and plan as written. Number of minutes spent on the visit: 20m.
--- NOTE | 2024-03-03 08:10 | P.DS ---
Providers Date of admission: 03/01/24 05:43 Expected date of discharge: 03/03/24 Attending physician: Varun Peck DO Consults: 03/01/24 10:13 Consult Physician Routine Consulting Provider: [facility] Consult Reason/Comments: medical management s/p L4-L5 MIS PLIF Do you want consulting provider notified?: Yes Primary care physician: Mauro Woodard Hospital Course: Hospital Course: The patient was evaluated preoperatively and found to have the diagnosis of Lumbar spondylosis with stenosis. They underwent appropriate preoperative care and were willing to undergo the intended procedure. They underwent a successful L4-L5 posterolateral interbody fusion, were recovered appropriately and sent to the floor. While on the floor they worked with physical therapy, occupational therapy and nursing to enhance their recovery experience. Their pain was well controlled through their stay and they were started on appropriate medications, DVT ppx modalities, activity and dietary needs. Daily labs were monitored closely, and transfusions were only used when necessary. Medicine as well as other consulting services have made their input and have helped with our team approach and multidisciplinary care. PT milestones have been met and passed and they have made the recommendation of Home with home care for this patient and treating providers agree with this care path. The patient will be discharged home with appropriate medications, instructions and follow-up information and in stable condition. Patient Condition at Discharge: Good Plan - Discharge Summary Discharge Rx Participant: Yes New Discharge Prescriptions: New Aspirin 81 mg PO DAILY #14 tab Gabapentin [Neurontin] 300 mg PO TID 3 Days #90 cap HYDROcodone/APAP 10-325MG [[place] 10-325] 1 tab PO Q4-6H PRN #42 tab PRN Reason: Pain metroNIDAZOLE [Flagyl] 500 mg PO TID #15 tab Cyclobenzaprine [Flexeril] 5 mg PO TID PRN #40 tablet PRN Reason: Muscle Spasm Sennosides/Docusate Sodium [Senna Plus 8.6-50 mg Softgel] 1 each PO DAILY PRN #20 capsule PRN Reason: Constipation No Action Famotidine [Pepcid AC] 40 mg PO BID Calcium Carbonate [Calcium] 600 mg PO DAILY Levothyroxine Sodium [Synthroid] 75 mcg PO DAILY Liothyronine Sodium [Cytomel] 5 mcg PO DAILY Discharge Medication List Calcium Carbonate [Calcium] 600 mg PO DAILY 01/26/19 [History] Famotidine [Pepcid AC] 40 mg PO BID 01/26/19 [History] Levothyroxine Sodium [Synthroid] 75 mcg PO DAILY 03/01/24 [History] Liothyronine Sodium [Cytomel] 5 mcg PO DAILY 03/01/24 [History] Aspirin 81 mg PO DAILY #14 tab 03/03/24 [Rx] Cyclobenzaprine [Flexeril] 5 mg PO TID PRN #40 tablet 03/03/24 [Rx] Gabapentin [Neurontin] 300 mg PO TID 3 Days #90 cap 03/03/24 [Rx] HYDROcodone/APAP 10-325MG [[place] 10-325] 1 tab PO Q4-6H PRN #42 tab 03/03/24 [Rx] Sennosides/Docusate Sodium [Senna Plus 8.6-50 mg Softgel] 1 each PO DAILY PRN #20 capsule 03/03/24 [Rx] metroNIDAZOLE [Flagyl] 500 mg PO TID #15 tab 03/03/24 [Rx] Follow up Appointment(s)/Referral(s): [facility], [NON-STAFF] - As Needed Varun Peck DO [Doctor of Osteopathic Medicine] - 2 Weeks Activity/Diet/Wound Care/Special Instructions: Spine Discharge and Recovery Instructions Date of Surgery: 03/01/2024 Diagnosis: 1. L4-5 GRADE I SPONDYLOLISTHESIS, UNSTABLE 2. L4-5 STENOSIS, SEVERE WITH CYST FORMATION 3. LE RADICULOPATHY 4. LLE WEAKNESS 5. LOW BACK PAIN Procedure: L4-L5 MIS PLIF Medications: See medication list All medication refills should be obtained through your primary care doctor or your clinic spine surgeon. Please discuss prescription refills at your follow up appointment. Do not call the hospital for medication refills. Dressing: Leave your dressing in place for a total of 5 days post operatively. Then you may remove your dressing and leave open to air. Keep the area clean and if not able to keep area clean, then cover with sterile gauze and tape. Showering: You may shower 3 days after your procedure allowing soap and water to run over incision. Do not scrub. Do not soak. Blot dry. Follow up: Please confirm a follow up appointment with your surgeon 3 weeks post operatively. Please make an appointment to follow up with your PCP in 1-2 weeks after surgery for evaluation '3 phase, 3-week plan' POST OP WEEKS 1-3 1. Lifting/carrying/pushing/pulling limited to less than 5 pounds. 2. Do not sit for longer than 15 minutes at one time. Get up and walk around. Prolonged sitting is NOT advised. If you lay down, see if you can tolerate laying down on you front (belly side) 3. Walk for periods of 15 minutes = 1 mile but no longer; do it multiple times times each day. 4. Ice your low back after activity. POST OP WEEKS 3-6 1. Lifting limited to less than 20 pounds. 2. Do not sit for longer than 30 minutes at a time. Frequently change positions. Use a sit-to stand workstation or take frequent breaks from sitting if you have returned to work. 3. Walk for 30 minutes each day. If possible, do these three or more times a day POST OP WEEKS 6+ At your 6-week appointment we will give you a physical therapy referral to focus on a core stabilization and strengthening program. You should also work on leg & buttock strengthening, hamstring & quadriceps stretching, and continue a low impact aerobic activity program such as swimming, walking, or riding a stationary bicycle. During the initial 6 weeks after your surgery, you are at the highest risk of re-injuring your spine. You should generally avoid BLT's (bending, lifting and twisting combination motions) and follow the above guidelines to reduce the chance of reinjury. You can anticipate post op appointments in our office at approximately 3 weeks and 6 weeks after your surgery. INCISION CARE: If your incision is not draining you do NOT need to cover it with a dressing. Keep your incision clean, dry and intact. In most cases, we apply skin glue, karlos or sutures to the incision at the time of surgery. This will be like a crust or have the appearance of a scab and will fall off in time on its own. The stitches or karlos need to be removed at 3 weeks post op appointment. You may begin to shower 3 days after surgery (this allows the glue to schulte well). However, please avoid scrubbing the incision site or peeling off any of the skin glue. This will ensure optimal healing of your incision. Also, during this time avoid soaking the incision area in water - this includes swimming pools, hot tubs or baths. No ointments, lotions or oils on the incision until your surgeon allows. Leave karlos, sutures or glue in place. Neurological dysfunction that comes on suddenly can also be a sign of a stroke. Below some common symptoms of a stroke are listed: B - balance difficulty such as sudden onset walking or leaning to one side - NEW E - eye problem such as sudden double vision or trouble seeing on one side - NEW F - Facial weakness or numbness on one side - NEW A - Arm or leg weakness or numbness on one side - NEW S - Slurred speech or difficulty with word finding - NEW T - Time is BRAIN! Call 911 as soon as you recognize these symptoms Diet: Consume a regular diet rich in vegetables and lean protein such as chicken or fish. You should consume in a ratio of approximately 20% fats|40% carbohydrates|40%protein. Vegetables, sweet potatoes, brown rice or quinoa are examples of good carbohydrates. Chips, white bread, cookies and sweets/sugar are examples of bad carbohydrates. Limit your bad carbs, go wild with good carbs. 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 (1) Get Active. Physical activity can help people lose weight, control high blood pressure and cholesterol, feel emotionally better, and sleep better. (2) Control Cholesterol. Avoid a diet high in saturated fat, trans fat, & cholesterol. Limit whole milk & cream, ice cream, butter, egg yolks, processed meats (like sausage and hot dogs), and fatty meats. Choose healthy foods that are low in saturated fat, trans fat and cholesterol which include: Fruits and vegetables, fiber rich grain products (like whole grain pasta and brown rice), lean meat such as chicken, fish, nuts, seeds, and legumes. (3) Eat Better. Eat small portions. Shop at the grocery with a list and do not stray from it. Tips for a healthy diet include: Limit sodium intake to less than 1500mg daily, avoid prepackaged, processed, and fast foods, choose a diet rich in fruits, vegetables, and whole grain, high fiber foods, and limit saturated & cholesterol in your diet. (4) Manage Blood Pressure. If you have high blood pressure, you should have a cuff at home so that you can check your blood pressure regularly. Be sure you have a good cuff. An arm one is generally better than a wrist one. Bring the cuff to a doctor's appointment to validate that the measurements that your cuff are taking are accurate. Take your blood pressure twice daily when you are sitting down and relaxing. Record the numbers in a log and bring this log with you to your doctors' appointments. (5) Lose Weight if your BMI is above 25. A healthy BMI is between 19-25. To calculate Your BMI, you may use a Standard BMI Calculator on the NIH BMI website: <www.nhlbi.nih.gov/guidelines/obesity/BMI/bmicalc.htm>. Weigh oneself daily. If you are overweight, set a goal to lose weight. A pound a week loss if needed is a good target. (6) Reduce Blood Sugar. Limit foods and liquids with "added sugars." (Added sugars include sucrose, fructose, glucose, maltose, dextrose, high fructose corn syrup, corn syrup, concentrated fruit juice and honey). (7) Stop Smoking. If you smoke, quitting smoking is one of the best things that you can do for your health. Smoking increases your risk of heart attack, stroke, and peripheral vascular disease, which is a build-up of plaque in your arteries. Please discard all the cigarettes and lighters in your house. Have a plan for what you will do when you have the urge to smoke. Direct and second- hand smoke shortens your life as well as the lives of your family, friends and others around you. For your health and the health of those around you, please consider quitting! Proper Bending Body Mechanics: Maintain a wide stance with one foot slightly in front of the other. Keep your back straight. Bend utilizing the strength in your hips and knees. Do not bend at the waist. Maintain the lifted object at your waist-level close to your body. Avoid lifting weight that causes immediately pain or pain anywhere in the body afterwards. Smoking/Nicotine If there was ever one thing that you could do to increase your overall health, decrease your risk of cardiovascular problems by about 39% the second you make the choice, it is to STOP SMOKING. Your body's most instant gratification is the second you stop smoking. We have all heard the studies, read the articles but it is true, smoking is extremely bad for your overall health, and moreover it is detrimental to your bone health. Nicotine, IN ANY FORM, kills bone cells, prevents your body from healing fractures, and significantly prolongs healing after surgery. In spine surgery specifically, it increases your risk of not healing your bones to create a fusion and increases your risk of having a revision surgery due to this up to 60%. I know it is hard. I know it feels impossible. But there are ways. Take control of your life. We are here to help you through it. And when you are ready, ask us and we can direct you to help if you desire. Use the START Plan to Quit Smoking (please visit the Helpguangelcam.org website listed below for more information): S = Set a quit date. Choose a date within the next 2 weeks, so you have enough time to prepare without losing your motivation to quit. If you mainly smoke at work, quit on the weekend, so you have a few days to adjust to the change. T = Tell family, friends, and co-workers that you plan to quit. Let your friends and family in on your plan to quit smoking and tell them you need their support and encouragement to stop. Look for a quit sharla who wants to stop smoking as well. You can help each other get through the rough times. A = Anticipate and plan for the challenges you'll face while quitting. Most people who begin smoking again do so within the first 3 months. You can help yourself make it through by preparing ahead for common challenges, such as nicotine withdrawal and cigarette cravings. R = Remove cigarettes and other tobacco products from your home, car, and work. Throw away all your cigarettes (no emergency pack!), lighters, ashtrays, and matches. Wash your clothes and freshen up anything that smells like smoke. Shampoo your car, clean your drapes and carpet, and steam your furniture. T = Talk to your doctor about getting help to quit. Your doctor can prescribe medication to help with withdrawal and suggest other alternatives. If you can't see a doctor, you can get many products over the counter at your local pharmacy or grocery store, including the nicotine patch, nicotine lozenges, and nicotine gum. Resources for Quitting Smoking: <ht tps://www.[place].gov/documents/[facility]/Quit_Tobacco_Resources_for_patients_313480 _7.pdf> Supplementation: Take recommended dosages of Vitamin D and Calcium to help fortify your bones and help them to heal. See your health maintenance packet for dosages and recommended levels. DVT/VTE prophylaxis: You will be given compression stockings from the hospital. Wear these daily for the first two weeks after surgery. You may take them off at night. You may be prescribed a medication to help thin your blood. Take this as directed. If you are not prescribed this medication, early and frequent ambulation has been shown to be the best prophylaxis to deep vein thrombosis and sequelae related to this event.
[2024-03-03] MEDS: VANCOMYCIN TROUGH DUE 1 EACH MISC MISCELLANE ONE (09:06)
[2024-03-03] MEDS: CALCIUM CARBONATE 500 MG CHEWABLE PO SCH (09:22)
[2024-03-03 13:52] VITALS: BP 99/62; PULSE 90; RESP 18; TEMP 97.9
--- NOTE | 2024-03-03 13:52 | P.PN ---
Subjective Progress Note Date: 03/03/24 Interval History: This is a 58-year-old female with past medical history significant for hypothyroidism who was following spine orthopedics for chronic back pain. Patient recently had a stress test with cardiology which was negative. Patient underwent L4-L5 posterior lateral decompression and fusion on 03/01/2024. Intermittent consulted for medical management. Patient pain is controlled, doing well postoperatively, denied any flatus or bowel movement, tolerating p.o. intake. No nausea or vomiting. Denied any fever, chills, chest pain, palpitation, shortness of breath, sore throat, weakness numbness to extremities. Left lower extremity symptoms numbness and tingling slightly better postoperat ively. Denied any issues with bowel or bladder. Temperature 99.3, heart rate 86, respiratory rate 17, blood pressure 94/55, saturating 95% on room air. WBCs 7, hemoglobin 10.7, platelet 198. BMP unremarkable. 03/03/24 Patient seen and examined today. Pain is controlled. No issues overnight. Had low-grade fever 100.5, no sign or symptom of infection. Blood pressure stable 101/63, saturating 93% on room air, heart rate 98, respiratory rate 20. Assessment and plan: Status post L4-5 posterior lateral decompression and fusion Perioperative antibiotics, DVT prophylaxis and pain management per primary PT/OT consult Bowel/bladder protocol Neurovascular checks Hypothyroidism: Continue home medication. DVT prophylaxis Per primary PHYSICAL EXAMINATION: GENERAL: The patient is A&O x3, NAD HEENT: EOMI, Sclerae anicteric, Moist Mucous membranes Neck: Supple, Non tender, No JVD PULMONARY: Equal breath souds B/L, No wheezing, No crackles. CARDIOVASCULAR: S1, S2 present. No murmurs, rubs, or gallops. ABDOMEN: Soft, nontender, nondistended, normoactive bowel sounds. No guarding or rebound tenderness. MUSCULOSKELETAL: No edema, No cyanosis. No clubbing. Normal ROM. Intact peripheral pulses. Lower back incisiondressing intact. NEUROLOGICAL: CN 2-12 grossly intact. No FND REVIEW OF SYSTEMS: CONSTITUTIONAL: No fever or chills. CARDIOVASCULAR: No chest pain, palpitations or syncope. PULMONARY: No shortness of breath, no cough, sore throat. GASTROINTESTINAL: No nausea, vomiting, diarrhea, abdominal pain. : No Dysuria, urgency, frequency. Extremities: No edema. NEUROLOGICAL: No headaches, no weakness, or numbness Dictation was produced using [email or web address] dictation software. please excuse any grammatical, word or spelling errors. Objective - Vital Signs Vital signs: Vital Signs Temp 98.3 F 03/03/24 07:21 Pulse 93 03/03/24 07:21 Resp 17 03/03/24 07:21 BP 97/62 03/03/24 07:21 Pulse Ox 91 L 03/03/24 07:21 FiO2 Intake & Output 03/02/24 03/03/24 03/03/24 18:59 06:59 18:59 Intake Total 430 Output Total 1200 Balance -770 Intake: Oral 430 Output: Urine 1200 Other: Voiding Method Toilet Toilet # Voids 1 2 1 - Labs CBC & Chem 7: 03/02/24 03:01 03/03/24 06:16
== END 2024-03-03 17:28 | disposition home health service (06) ==
LOC: OR 05:42 → 4SSUR 05:43 → OR 05:43 → 4SSUR 10:05
PROVIDERS: ADMIT Orthopaedic Surgery; ATTEND Orthopaedic Surgery
DX: M43.16 Spondylolisthesis, lumbar region (principal); M48.061 Spinal stenosis, lumbar region without neurogenic claudication; M47.26 Other spondylosis with radiculopathy, lumbar region; G89.29 Other chronic pain; E03.9 Hypothyroidism, unspecified; K21.9 Gastro-esophageal reflux disease without esophagitis; Z79.890 Hormone replacement therapy; Z87.891 Personal history of nicotine dependence; Z88.1 Allergy status to other antibiotic agents; Z88.2 Allergy status to sulfonamides; Z88.8 Allergy status to other drugs, medicaments and biological substances; Z79.899 Other long term (current) drug therapy
CPT/HCPCS: 22633; 22853; 20930; 20936; 22840; 97161; 88304; 80048; 82565; 85025; 80202; 72100; 72131; 63052; G0378 ×2; C1713; C1762; C1734; J2250; J3370 ×3; J0330; J1100; J2405; J2003; J3010; J1171 ×3; J2704; J0665

== ENCOUNTER → 2024-04-19 | Outpatient (CLI) | payer BC ==
--- NOTE | 2024-04-20 12:44 | MM ---
Reason for Exam: Screening (asymptomatic). Last mammogram was performed 1 year(s) and 1 month(s) ago. Patient History: Menarche at age 11. First Full-Term at age 25. Postmenopausal. Patient has history of breast feeding. 04/09/2016, Benign Cyst Aspiration on the left side. Risk Values: Vero 5 year model risk: 1.6%. NCI Lifetime model risk: 9.3%. Prior Study Comparison: 01/03/2022 Bilateral MG 3D screening mammo w/cad, [facility]. 01/10/2022 Right MG 3D work up w/cad RT, [facility]. 02/21/2023 Bilateral MG 3D screening mammo w/cad, [facility]. Tissue Density: The breasts are heterogeneously dense, which may obscure small masses. Analyzed By CAD. Overall Assessment: Negative, BI-RAD 1 Management: Screening Mammogram of both breasts in 1 year. Electronically signed and approved by: David Song D.O. Radiologis
== END | disposition home or self-care (01) ==
LOC: RADMAMWWP 16:05
PROVIDERS: ATTEND Family Medicine
DX: Z12.31 Encounter for screening mammogram for malignant neoplasm of breast (principal); R92.333 Mammographic heterogeneous density, bilateral breasts; Z78.0 Asymptomatic menopausal state
CPT/HCPCS: 77063; 77067